=== PATIENT | male | born 1935 ===

== ENCOUNTER 2017-05-03 21:28 | Inpatient (IN) | payer MEDICARE, OTHER ==
[2017-05-03 21:28] VITALS: BMI 31.2
[2017-05-03] MEDS ORDERED: Iohexol 240 (50 ml) PO ONE (21:39)
[2017-05-03] MEDS ORDERED: Sodium Chloride 0.9% 1,000 ML IV STA (21:47)
[2017-05-03] MEDS ORDERED: Morphine 4 MG/ML VIAL ONE (21:48)
[2017-05-03] MEDS ORDERED: Iohexol 240 (50 ml) ONE (21:48)
[2017-05-03 22:13] LABS: VENOUS BLOOD GAS PCO2 44 mmHg (40-60); VENOUS BLOOD GAS PO2 24 mm/Hg (30-55); VENOUS BLOOD PH 7.44 (7.32-7.43)
--- NOTE | 2017-05-03 22:13 | ED PDOC ---
HPI: Abdomen Time Seen by Provider: 05/03/17 21:34 Chief Complaint (Nursing): Abdominal Pain Chief Complaint (Provider): Abdominal Pain History Per: Patient History/Exam Limitations: no limitations Onset/Duration Of Symptoms: Hrs (x2) Current Symptoms Are (Timing): Still Present Additional Complaint(s): Wellington Bain is a 81 year old male with previous medical history of small bowel movements, diverticular disease, and gastritis, who presents to the emergency department with a complaint of acute onset of sharp, constant epigastric pain ongoing for 2 hours. Denied any fever, chills, nausea, vomiting , or diarrhea. Patient stated he had similar episodes in the past. PMD: Bi Faustin MD Past Medical History Reviewed: Historical Data, Nursing Documentation, Vital Signs Vital Signs: Last Vital Signs Temp 98.7 F 05/03/17 21:29 Pulse 84 05/03/17 21:29 Resp 20 05/03/17 21:29 BP 138/79 05/03/17 21:29 Pulse Ox 97 05/04/17 03:57 - Medical History PMH: Arthritis, Gastritis, Hypercholesterolemia Denies: Chronic Kidney Disease - Surgical History Surgical History: Endoscopy - Family History Family History: States: No Known Family Hx - Social History Current smoker - smoking cessation education provided: No Alcohol: None Drugs: Denies - Home Medications Home Medications: Ambulatory Orders Medication Instructions Recorded Glimepiride 4 mg PO DAILY 11/14/14 Metformin Hydrochloride [Metformin] 750 mg PO DAILY 11/14/14 Sitagliptin Phosphate [Januvia] 100 mg PO DAILY 11/14/14 Tamsulosin [Flomax] 0.4 mg PO DAILY 11/14/14 Lactulose 10 gm NA DAILY 4 Days 10/04/15 - Allergies Allergies/Adverse Reactions: Allergies Allergy/AdvReac Type Severity Reaction Status Date / Time No Known Allergies Allergy Verified 10/04/15 11:24 Review of Systems ROS Statement: Except As Marked, All Systems Reviewed And Found Negative Constitutional: Negative for: Fever, Chills Gastrointestinal: Positive for: Abdominal Pain (sharp and constant epigastric). Negative for: Nausea, Vomiting, Diarrhea Physical Exam - Reviewed Nursing Documentation Reviewed: Yes Vital Signs Reviewed: Yes - Physical Exam Appears: Positive for: Non-toxic, Uncomfortable, In Acute Distress (mild) Head Exam: Positive for: ATRAUMATIC, NORMAL INSPECTION, NORMOCEPHALIC Skin: Positive for: Normal Color Cardiovascular/Chest: Positive for: Regular Rate, Rhythm Respiratory: Positive for: CNT, Normal Breath Sounds Gastrointestinal/Abdominal: Positive for: Tenderness (epigastric) Extremity: Positive for: Normal ROM Neurologic/Psych: Positive for: Alert, microfilmer II-XII, Oriented - Laboratory Results Result Diagrams: 05/03/17 22:37 05/03/17 22:37 - ECG O2 Sat by Pulse Oximetry: 97 (RA) Pulse Ox Interpretation: Normal Medical Decision Making Medical Decision Making: Initial Impression: Acute abdominal pain Initial Plan: * VBG shock panel * CT ABD pelvis PO & IV contrast * EKG * Lipase * Troponin I * PTT * PT * Labs * CXR * Pepcid 40mg IV * Omnipaque 50ml PO * Morphine 4mg * NS 1,000ml IV per 125 mls/hr * Zofran 4mg IV * Blood culture * Accucheck * Re-evaluation Scribe Attestation: Documented by Sarika Malik, acting as a scribe for Maxi Rao MD. Provider Scribe Attestation: All medical record entries made by the Scribe were at my direction and personally dictated by me. I have reviewed the chart and agree that the record accurately reflects my personal performance of the history, physical exam, medical decision making, and the department. Time: 0045 Re-Evaluation: EXAM: CT Abdomen and Pelvis With Intravenous Contrast CLINICAL HISTORY: 81 years old, male; Pain; Abdominal pain; Epigastric; Prior surgery; Surgery date: 6+ months; Surgery type: Gall bladder removed; Additional info: Abd pain TECHNIQUE: Axial computed tomography images of the abdomen and pelvis with intravenous contrast. This CT exam was performed using one or more of the following dose reduction techniques : automated exposure control, adjustment of the mA and/or kV according to patient size, and/ or use of iterative reconstruction technique. Coronal and sagittal reformatted images were created and reviewed. CONTRAST: 90 mL of [id number] administered intravenously. COMPARISON: CT - ABD PELVIS PO IV CONTRAST 10/04/2015 3:15:04 PM FINDINGS: Lower thorax: Right basilar atelectasis. ABDOMEN: Liver: No acute findings. Gallbladder and bile ducts: The gallbladder is surgically absent. No significant intra- or extrahepatic biliary ductal dilation. Pancreas: Enhances homogeneously. No ductal dilation. No discrete mass. Spleen: No acute findings. Adrenals: No acute findings. Kidneys and ureters: No acute findings. No hydronephrosis or renal calculi. No discrete solid mass. PELVIS: Bladder: No acute findings. Reproductive: No acute findings. Appendix: The air filled appendix is of normal caliber (series 3, image 107; series 601, image 62) . ABDOMEN and PELVIS: Stomach and bowel: Moderate bowel distention is identified within the mid to distal small bowel with adjacent free fluid. Hyperemia is also detected within these loops of bowel. Distal decompression is identified. Colonic diverticulosis is identified, without inflammation. Peritoneum: As above. Lymph nodes: No pathologically enlarged lymph nodes. Vasculature: Calcified atherosclerotic disease. Bones: No acute fracture. IMPRESSION: Findings within the mid to distal small bowel for which a high-grade small bowel obstruction is suspected, possibly a closed loop - for which clinical correlation and surgical consultation is suggested Consultations: --Case discussed with Dr. Lei MD. the rn surgical homemaking rehabilitation consultant who will evaluate the patient in the ED. --Case discussed with the hospitalist Dr. Longo who will be the admitting physician. --Case discussed with Dr. Jurado the general surgeon homemaking rehabilitation consultant as well. Scribe Attestation: Documented by Cherry Bojorquez, acting as a scribe for Maxi Rao MD. Scribe Attestation: All medical record entries made by the Scribe were at my direction and personally dictated by me. I have reviewed the chart and agree that the record accurately reflects my personal performance of the history, physical exam, medical decision making, and the department course for this patient. I have also personally directed, reviewed, and agree with the discharge instructions and disposition. Disposition - Clinical Impression Clinical Impression: Small bowel obstruction - Patient ED Disposition Is Patient to be Admitted: Yes Discussed With Dr.: Florentin Longo (Dr Jurado/) Counseled Patient/Family Regarding: Studies Performed, Diagnosis - Disposition Disposition Time: 00:40 Condition: FAIR - Pt Status Changed To: Hospital Disposition Of: Inpatient - Admit Certification Admit to Inpatient:: After my assessment, the patient will require hospitalization for at least two midnights. This is because of the severity of symptoms shown, intensity of services needed, and/or the medical risk in this patient being treated as an outpatient.
[2017-05-03 22:44] LABS: BASO % 0.6 % (0.0-2.0); EOS # 0.2 K/uL (0.0-0.7); EOS % 2.9 % (0.0-4.0); HEMOGLOBIN 13.4 g/dL (12.0-18.0); LYMPH # 1.5 K/uL (1.0-4.3); LYMPH % 27.3 % (20.0-40.0); MEAN CELL VOLUME 88.8 fl (80.0-94.0); MEAN CORPUSCULAR HEMOGLOBIN 30.4 pg (27.0-31.0); MEAN CORPUSCULAR HGB CONC 34.2 g/dL (33.0-37.0); MONO # 0.5 K/uL (0.0-0.8); NEUT # 3.2 K/uL (1.8-7.0); NEUT % 59.2 % (50.0-75.0); RBC 4.41 Mil/uL (4.40-5.90); RED CELL DISTRIBUTION WIDTH 14.5 % (11.5-14.5); WHITE BLOOD COUNT 5.4 K/uL (4.8-10.8)
[2017-05-03] MEDS ORDERED: Morphine 4 MG/ML VIAL IVP ONE (22:45)
[2017-05-03 23:04] LABS: ALB/GLOB RATIO 1.6 (1.0-2.1); ALBUMIN 4.5 g/dL (3.5-5.0); ALT/SGPT 41 U/L (21-72); AST/SGOT 30 U/L (17-59); BLOOD UREA NITROGEN 13 mg/dl (9-20); GFR AFRICAN-AMERICAN > 60; GFR NON-AFRICAN AMERICAN > 60; LIPASE 51 U/L (23-300)
[2017-05-03 23:11] LABS: INR 1.1 (0.9-1.2); PARTIAL THROMBOPLASTIN TIME 33.6 Seconds (25.6-37.1); PROTHROMBIN TIME 11.5 Seconds (9.8-13.1)
[2017-05-03] MEDS ORDERED: Sodium Chloride 0.9% 50 ML IV ONE (23:11)
[2017-05-03] MEDS ORDERED: Iohexol 300 100 ML IJ ONE (23:11)
--- NOTE | 2017-05-04 00:23 | CT ---
EXAM: CT Abdomen and Pelvis With Intravenous Contrast CLINICAL HISTORY: 81 years old, male; Pain; Abdominal pain; Epigastric; Prior surgery; Surgery date: 6+ months; Surgery type: Gall bladder removed; Additional info: Abd pain TECHNIQUE: Axial computed tomography images of the abdomen and pelvis with intravenous contrast. This CT exam was performed using one or more of the following dose reduction techniques: automated exposure control, adjustment of the mA and/or kV according to patient size, and/or use of iterative reconstruction technique. Coronal and sagittal reformatted images were created and reviewed. CONTRAST: 90 mL of [id number] administered intravenously. COMPARISON: CT - ABD PELVIS PO IV CONTRAST 10/04/2015 3:15:04 PM FINDINGS: Lower thorax: Right basilar atelectasis. ABDOMEN: Liver: No acute findings. Gallbladder and bile ducts: The gallbladder is surgically absent. No significant intra- or extrahepatic biliary ductal dilation. Pancreas: Enhances homogeneously. No ductal dilation. No discrete mass. Spleen: No acute findings. Adrenals: No acute findings. Kidneys and ureters: No acute findings. No hydronephrosis or renal calculi. No discrete solid mass. PELVIS: Bladder: No acute findings. Reproductive: No acute findings. Appendix: The air filled appendix is of normal caliber (series 3, image 107; series 601, image 62) . ABDOMEN and PELVIS: Stomach and bowel: Moderate bowel distention is identified within the mid to distal small bowel with adjacent free fluid. Hyperemia is also detected within these loops of bowel. Distal decompression is identified. Colonic diverticulosis is identified, without inflammation. Peritoneum: As above. Lymph nodes: No pathologically enlarged lymph nodes. Vasculature: Calcified atherosclerotic disease. Bones: No acute fracture. IMPRESSION: Findings within the mid to distal small bowel for which a high-grade small bowel obstruction is suspected, possibly a closed loop - for which clinical correlation and surgical consultation is suggested.
[2017-05-04] MEDS ORDERED: Albuterol-Ipratrop 3 mg / 0.5 (3 ml) UD INH STA (01:50)
[2017-05-04] MEDS ORDERED: Albuterol-Ipratrop 3 mg / 0.5 (3 ml) UD ONE (02:54)
[2017-05-04] MEDS ORDERED: HYDROmorphone 0.5 mg/0.5 ml ISec IVP PRN ×2 (03:48→16:44)
[2017-05-04] MEDS ORDERED: Dextrose 50% SYRINGE Inj (50 ml) IV PRN (03:50)
[2017-05-04] MEDS ORDERED: Glucagon Recombinant 1 mg Inj IM PRN (03:50)
[2017-05-04] MEDS ORDERED: Albuterol-Ipratrop 3 mg / 0.5 (3 ml) UD INH PRN (03:54)
--- NOTE | 2017-05-04 04:27 | CP.PCM.CON ---
History of Present Illness - History of Present Illness History of Present Illness: General Surgery Consult Re: SBO HPI: 81M presented to the ER with sharp, constant periumbilical pain x 2hrs. Does not radiate. Has had similar pain before which he says was from gastritis which resolved. Denied F/C, N/V/D/C, chest pain, SOB. Last BM was 2 days ago and normal. No other complaints. Has never had an NGT for this pain before. PMH: DM, HLD, gastritis, Hx pancreatitis, Arthritis, diverticulosis PSH: Cholecystectomy, prostate, pancreas? SH: Denies tobacco, EtOH, and drug use. All: NKDA Meds: See MAR Review of Systems - Review of Systems All systems: reviewed and no additional remarkable complaints except (as per HPI ) Past Patient History - Past Medical History & Family History Past Medical History?: Yes - Past Social History Alcohol: None Drugs: Denies - CARDIAC Hx Hypercholesterolemia: Yes - PULMONARY Hx Respiratory Disorders: No - NEUROLOGICAL Hx Neurological Disorder: No - HEENT Hx HEENT Problems: No - RENAL Hx Chronic Kidney Disease: No - ENDOCRINE/METABOLIC Hx Endocrine Disorders: Yes Hx Diabetes Mellitus Type 2: Yes - HEMATOLOGICAL/ONCOLOGICAL Hx Blood Disorders: No - INTEGUMENTARY Hx Dermatological Problems: No - MUSCULOSKELETAL/RHEUMATOLOGICAL Hx Arthritis: Yes - GASTROINTESTINAL Hx Gastritis: Yes - GENITOURINARY/GYNECOLOGICAL Hx Genitourinary Disorders: No - PSYCHIATRIC Hx Emotional Abuse: No Hx Physical Abuse: No Hx Substance Use: No - SURGICAL HISTORY Hx Surgeries: Yes Other/Comment: PROSTATECTOMY, PANCREAS SX - ANESTHESIA Hx Anesthesia: Yes Hx Anesthesia Reactions: No Hx Malignant Hyperthermia: No Meds Allergies/Adverse Reactions: Allergies Allergy/AdvReac Type Severity Reaction Status Date / Time No Known Allergies Allergy Verified 10/04/15 11:24 - Medications Medications: Current Medications Albuterol/Ipratropium (Duoneb 3 Mg/0.5 Mg (3 Ml) Ud) 3 ml INH RQ6 PRN PRN Reason: Shortness of Breath Dextrose (Dextrose 50% Inj) 0 ml IV STAT PRN; Protocol PRN Reason: Hyglycemia Protocol Dextrose (Glutose 15) 0 gm PO ONCE PRN; Protocol PRN Reason: Hypoglycemia Protocol Famotidine (Pepcid) 20 mg IVP DAILY KRISTY Glucagon (Glucagen Diagnostic Kit) 0 mg IM STAT PRN; Protocol PRN Reason: Hypoglycemia Protocol Hydromorphone HCl (Dilaudid) 0.5 mg IVP RQ4PRN PRN PRN Reason: Pain, severe (8-10) Sodium Chloride (Sodium Chloride 0.9%) 1,000 mls @ 125 mls/hr IV .Q8H STA Stop: 05/04/17 05:46 Last Admin: 05/03/17 22:28 Dose: 125 mls/hr Insulin Human Regular (Humulin R) 0 units SC ACHS KRISTY PRN Reason: Protocol Ondansetron HCl (Zofran Inj) 4 mg IVP Q4 PRN PRN Reason: Nausea/Vomiting Physical Exam - Constitutional Appears: Non-toxic, No Acute Distress - Head Exam Head Exam: ATRAUMATIC, NORMOCEPHALIC - Eye Exam Eye Exam: EOMI. absent: Scleral icterus - ENT Exam ENT Exam: Mucous Membranes Moist Additional comments: trachea midline - Respiratory Exam Respiratory Exam: NORMAL BREATHING PATTERN. absent: Respiratory Distress - Cardiovascular Exam Cardiovascular Exam: RRR, +S1, +S2 - GI/Abdominal Exam GI & Abdominal Exam: Guarding (mild), Soft, Tenderness (over periumbilical area) . absent: Distended, Firm, Rigid Additional comments: old midline scar, well healed - Rectal Exam Rectal Exam: Deferred - Extremities Exam Extremities exam: Negative for: calf tenderness, pedal edema - Back Exam Back exam: absent: CVA tenderness (L), CVA tenderness (R) - Neurological Exam Neurological exam: Alert, Oriented x3 - Psychiatric Exam Psychiatric exam: Normal Affect - Skin Skin Exam: Dry, Warm Results - Vital Signs Recent Vital Signs: Last Vital Signs Temp 98.7 F 05/03/17 21:29 Pulse 84 05/03/17 21:29 Resp 20 05/03/17 21:29 BP 138/79 05/03/17 21:29 Pulse Ox 97 05/04/17 03:57 - Labs Result Diagrams: 05/04/17 04:27 05/04/17 04:27 - Imaging and Cardiology CT scan - abdomen Status: Image reviewed by me, Report reviewed by me Assessment & Plan - Assessment and Plan (Free Text) Assessment: 81M with SBO likely 2/2 adhesions Plan: Serial abd exams NGT if N/V begins Zofran Analgesia Monitor for BMs D/W Dr. Adrien Odom PGY4
[2017-05-04 04:33] LABS: BASO % 0.4 % (0.0-2.0); EOS % 0.4 % (0.0-4.0); HEMOGLOBIN 13.3 g/dL (12.0-18.0); LYMPH # 1.7 K/uL (1.0-4.3); LYMPH % 22.3 % (20.0-40.0); MEAN CELL VOLUME 89.2 fl (80.0-94.0); MEAN CORPUSCULAR HEMOGLOBIN 31.1 pg (27.0-31.0); MEAN CORPUSCULAR HGB CONC 34.8 g/dL (33.0-37.0); MEAN PLATELET VOLUME 8.7 fl (7.2-11.7); MONO # 0.5 K/uL (0.0-0.8); MONO % 6.9 % (0.0-10.0); NEUT # 5.3 K/uL (1.8-7.0); NRBC % 0.1 % (0.0-0.0); RBC 4.3 Mil/uL (4.40-5.90); RED CELL DISTRIBUTION WIDTH 14.6 % (11.5-14.5); WHITE BLOOD COUNT 7.6 K/uL (4.8-10.8)
[2017-05-04 04:39] LABS: BLOOD UREA NITROGEN 12 mg/dl (9-20); CALCIUM 9.1 mg/dL (8.4-10.2); GFR AFRICAN-AMERICAN > 60; GFR NON-AFRICAN AMERICAN > 60; MAGNESIUM 1.9 MG/DL (1.6-2.3)
--- NOTE | 2017-05-04 06:03 | CP.PCM.HP ---
History of Present Illness - History of Present Illness History of Present Illness: Chief Complaint: Abdominal pain HPI: PT is an 81 yo male with past medical hx of DM, BPH, diverticulosis, and gastritis who presents to the emergency department with an acute onset of sharp epigastric pain that he quantifies at 6-7 /10 that was getting progressive in nature ongoing for 2 hours. Pt denies any fever, chills, nausea, vomiting, or diarrhea. Pt was seen by surgery resident who at this time will do conservative management. NGT could not be inserted. PT on ct scan found to have a high grade obstruction. PMD: Bi Faustin MD Last Vital Signs Temp 98.7 F 05/03/17 21:29 Pulse 84 05/03/17 21:29 Resp 20 05/03/17 21:29 BP 138/79 05/03/17 21:29 Pulse Ox 97 05/04/17 03:57 PMH: Arthritis, Gastritis, Hypercholesterolemia Surgical History: Endoscopy Family History: States: No Known Family Hx Social HX: denies any toxic habits Home Medications: Ambulatory Orders Medication Instructions Recorded Glimepiride 4 mg PO DAILY 11/14/14 Metformin Hydrochloride [Metformin] 750 mg PO DAILY 11/14/14 Sitagliptin Phosphate [Januvia] 100 mg PO DAILY 11/14/14 Tamsulosin [Flomax] 0.4 mg PO DAILY 11/14/14 Lactulose 10 gm NA DAILY 4 Days 10/04/15 Allergies Allergy/AdvReac Type Severity Reaction Status Date / Time No Known Allergies Allergy Verified 10/04/15 11:24 - ECG O2 Sat by Pulse Oximetry: 97 (RA) Pulse Ox Interpretation: Normal EXAM: CT Abdomen and Pelvis With Intravenous Contrast CLINICAL HISTORY: 81 years old, male; Pain; Abdominal pain; Epigastric; Prior surgery; Surgery date: 6+ months; Surgery type: Gall bladder removed; Additional info: Abd pain TECHNIQUE: Axial computed tomography images of the abdomen and pelvis with intravenous contrast. This CT exam was performed using one or more of the following dose reduction techniques : automated exposure control, adjustment of the mA and/or kV according to patient size, and/ or use of iterative reconstruction technique. Coronal and sagittal reformatted images were created and reviewed. CONTRAST: 90 mL of [id number] administered intravenously. COMPARISON: CT - ABD PELVIS PO IV CONTRAST 10/04/2015 3:15:04 PM FINDINGS: Lower thorax: Right basilar atelectasis. ABDOMEN: Liver: No acute findings. Gallbladder and bile ducts: The gallbladder is surgically absent. No significant intra- or extrahepatic biliary ductal dilation. Pancreas: Enhances homogeneously. No ductal dilation. No discrete mass. Spleen: No acute findings. Adrenals: No acute findings. Kidneys and ureters: No acute findings. No hydronephrosis or renal calculi. No discrete solid mass. PELVIS: Bladder: No acute findings. Reproductive: No acute findings. Appendix: The air filled appendix is of normal caliber (series 3, image 107; series 601, image 62) . ABDOMEN and PELVIS: Stomach and bowel: Moderate bowel distention is identified within the mid to distal small bowel with adjacent free fluid. Hyperemia is also detected within these loops of bowel. Distal decompression is identified. Colonic diverticulosis is identified, without inflammation. Peritoneum: As above. Lymph nodes: No pathologically enlarged lymph nodes. Vasculature: Calcified atherosclerotic disease. Bones: No acute fracture. IMPRESSION: Findings within the mid to distal small bowel for which a high-grade small bowel obstruction is suspected, possibly a closed loop - for which clinical correlation and surgical consultation is suggested Present on Admission - Present on Admission Any Indicators Present on Admission: No History of DVT/PE: No History of Uncontrolled Diabetes: No Urinary Catheter: No Decubitus Ulcer Present: No Review of Systems - Constitutional Constitutional: absent: As Per HPI, Anorexia, Chills, Daytime Sleepiness, Excessive Sweating, Fatigue, Fever, Frequent Falls, Headache, Increased Appetite , Lethargy, Malaise, Night Sweats, Snoring, Sleep Apnea, Weight Gain, Weight Loss, Weakness, Other - EENT Eyes: absent: As Per HPI, Blind Spots, Blurred Vision, Change in Vision, Decreased Night Vision, Diplopia, Discharge, Dry Eye, Exophthalmos, Floaters, Irritation, Itchy Eyes, Loss of Peripheral Vision, Pain, Photophobia, Requires Corrective Lenses, Sees Flashes, Spots in Vision, Tunnel Vision, Other Visual Disturbances, Loss of Vision, Other Ears: absent: As Per HPI, Decreased Hearing, Ear Discharge, Ear Pain, Tinnitus, Abnormal Hearing, Disequilibrium, Dizziness, Other Nose/Mouth/Throat: absent: As Per HPI, Epistaxis, Nasal Congestion, Nasal Discharge, Nasal Obstruction, Nasal Trauma, Nose Pain, Post Nasal Drip, Sinus Pain, Sinus Pressure, Bleeding Gums, Change in Voice, Dental Pain, Dry Mouth, Dysphagia, Halitosis, Hoarsness, Lip Swelling, Mouth Lesions, Mouth Pain, Odynophagia, Sore Throat, Throat Swelling, Tongue Swelling, Facial Pain, Neck Pain, Neck Mass, Other - Cardiovascular Cardiovascular: absent: As Per HPI, Acrocyanosis, Chest Pain, Chest Pain at Rest , Chest Pain with Activity, Claudication, Diaphoresis, Dyspnea, Dyspnea on Exertion, Edema, Irregular Heart Rhythm, Pain Radiating to Arm/Neck/Jaw, Leg Edema, Leg Ulcers, Lightheadedness, Orthopnea, Palpitations, Paroxysmal Nocturnal Dyspnea, Pedal Edema, Radiating Pain, Rapid Heart Rate, Slow Heart Rate, Syncope, Other - Respiratory Respiratory: absent: As Per HPI, Cough, Dyspnea, Hemoptysis, Dyspnea on Exertion , Wheezing, Snoring, Stridor, Pain on Inspiration, Chest Congestion, Excessive Mucous Production, Change in Mucous Color, Pain with Coughing, Other - Gastrointestinal Gastrointestinal: Abdominal Pain - Genitourinary Genitourinary: absent: As Per HPI, Change in Urinary Stream, Difficulty Urinating, Dysuria, Flank Pain, Hematuria, Pyuria, Nocturia, Urinary Incontinence, Urinary Frequency, Urinary Hesitance, Urinary Urgency, Voiding Freq/Small Amts, Freq UTI, Hx Renal/Bladder Calculi, Hx /Renal Surgery, Bladder Distension, Other - Musculoskeletal Musculoskeletal: absent: As Per HPI, Abnormal Gait, Arthralgias, Atrophy, Back Pain, Deformity, Joint Swelling, Limited Range of Motion, Loss of Height, Muscle Cramps, Muscle Weakness, Myalgias, Neck Pain, Numbness, Radiating Pain into Limb, Stiffness, Tingling, Other - Integumentary Integumentary: absent: As Per HPI, Acne, Alopecia, Bleeding Lesions, Change in Hair, Change in Nails, Change in Pigmentation, Changing Lesions, Dry Skin, Erythema, Furuncle, Hirsutism, Lesions, New Lesions, Non-Healing Lesions, Photosensitivity, Pruritus, Rash, Skin Pain, Skin Ulcer, Sores, Striae, Swelling , Unusual Bruising, Wounds, Jaundice, Other - Neurological Neurological: absent: As Per HPI, Abnormal Gait, Abnormal Hearing, Abnormal Movements, Abnormal Speech, Behavioral Changes, Burning Sensations, Confusion, Convulsions, Disequilibrium, Dizziness, Numbness, Focal Weakness, Frequent Falls , Headaches, Lack of Coordination, Loss of Vision, Memory Loss, Paresthesias, Radicular Pain, Restless Legs, Sensory Deficit, Syncope, Tingling, Tremor, Vertigo, Weakness, Other Visual Disturbances, Other - Psychiatric Psychiatric: absent: As Per HPI, Abnormal Sleep Pattern, Anhedonia, Anxiety, Auditory Hallucinations, Behavioral Changes, Change in Appetite, Change in Libido, Confusion, Depression, Difficulty Concentrating, Hallucinations, Homicidal Ideation, Hopelessness, Irritability, Memory Loss, Mood Swings, Panic Attacks, Paranoia, Suicidal Ideation, Visual Hallucinations, Tactile Hallucinations, Other - Endocrine Endocrine: absent: As Per HPI, Change in Body Appearance, Change in Libido, Cold Intolorance, Deepening of Voice, Excessive Sweating, Fatigue, Flushing, Heat Intolorance, Increase in Ring/Shoe/Hat Size, Palpitations, Polydipsia, Polyphagia, Polyuria, Other Past Patient History - Past Medical History & Family History Past Medical History?: Yes - Past Social History Chewing Tobacco Use: No Cigar Use: No Alcohol: None Drugs: Denies - CARDIAC Hx Hypercholesterolemia: Yes - PULMONARY Hx Respiratory Disorders: No - NEUROLOGICAL Hx Neurological Disorder: No - HEENT Hx HEENT Problems: No - RENAL Hx Chronic Kidney Disease: No - ENDOCRINE/METABOLIC Hx Endocrine Disorders: Yes Hx Diabetes Mellitus Type 2: Yes - HEMATOLOGICAL/ONCOLOGICAL Hx Blood Disorders: No - INTEGUMENTARY Hx Dermatological Problems: No - MUSCULOSKELETAL/RHEUMATOLOGICAL Hx Arthritis: Yes - GASTROINTESTINAL Hx Gastritis: Yes - GENITOURINARY/GYNECOLOGICAL Hx Genitourinary Disorders: No - PSYCHIATRIC Hx Emotional Abuse: No Hx Physical Abuse: No Hx Substance Use: No - SURGICAL HISTORY Hx Surgeries: Yes Other/Comment: PROSTATECTOMY, PANCREAS SX - ANESTHESIA Hx Anesthesia: Yes Hx Anesthesia Reactions: No Hx Malignant Hyperthermia: No Meds Allergies/Adverse Reactions: Allergies Allergy/AdvReac Type Severity Reaction Status Date / Time No Known Allergies Allergy Verified 10/04/15 11:24 Physical Exam - Constitutional Appears: Non-toxic - Head Exam Head Exam: ATRAUMATIC, NORMAL INSPECTION, NORMOCEPHALIC - Eye Exam Eye Exam: EOMI, Normal appearance, PERRL Pupil Exam: NORMAL ACCOMODATION - ENT Exam ENT Exam: Mucous Membranes Dry - Neck Exam Neck exam: Positive for: Normal Inspection - Respiratory Exam Respiratory Exam: Clear to Auscultation Bilateral, NORMAL BREATHING PATTERN - Cardiovascular Exam Cardiovascular Exam: REGULAR RHYTHM - GI/Abdominal Exam GI & Abdominal Exam: Diminished Bowel Sounds, Distended - Extremities Exam Extremities exam: Positive for: normal inspection - Back Exam Back exam: NORMAL INSPECTION - Neurological Exam Neurological exam: Alert, CN II-XII Intact, Normal Gait, Oriented x3, Reflexes Normal - Skin Skin Exam: Normal Color Results - Vital Signs Recent Vital Signs: Last Vital Signs Temp 97.6 F 05/04/17 04:30 Pulse 77 05/04/17 04:30 Resp 18 05/04/17 04:30 BP 143/67 05/04/17 04:30 Pulse Ox 96 05/04/17 04:30 - Labs Result Diagrams: 05/04/17 04:27 05/04/17 04:27 Labs: Laboratory Results - last 24 hr 05/04/17 05/04/17 04:27 04:27 WBC 7.6 RBC 4.30 L Hgb 13.3 Hct 38.3 MCV 89.2 MCH 31.1 H MCHC 34.8 RDW 14.6 H Plt Count 139 MPV 8.7 Neut % (Auto) 70.0 Lymph % (Auto) 22.3 Fountain % (Auto) 6.9 Eos % (Auto) 0.4 Baso % (Auto) 0.4 Neut # 5.3 Lymph # 1.7 Fountain # 0.5 Eos # 0.0 Baso # 0.0 Sodium 138 Potassium 3.9 Chloride 102 Carbon Dioxide 25 Anion Gap 15 BUN 12 Creatinine 0.7 L Est GFR ( Amer) > 60 Est GFR (Non-Af Amer) > 60 Random Glucose 174 H Calcium 9.1 Phosphorus 3.0 Magnesium 1.9 TSH 3rd Generation 4.08 Assessment & Plan - Assessment and Plan (Free Text) Assessment: PT comes in with high grade SBO. PT to be seen by surgery, for now conservative management. Plan: admit to medsurg 1) SBO- - iv fluid hydration - pain management with dilaudid - surgery to follow up with pt - electrolyte repletion PRN - NGT not necessary at this time 2) DM- - Pt is npo - insulin and sliding scale - HGA1c 3) gastritis- pepcid 4) dvt prophylaxis with [facility] - Date & Time Date: 05/04/17 Time: 06:18
[2017-05-04] MEDS: Insulin Regular 100 units/ml SC SCH ×2 (06:51→11:43)
--- NOTE | 2017-05-04 07:48 | CARD ---
APPROVED REPORT EKG Measurement Heart [id number] <Conclusion> Normal sinus rhythm Normal ECG
[2017-05-04] MEDS: Sodium Chloride 0.9% 1,000 ML IV SCH ×2 (08:00→16:29)
[2017-05-04] MEDS ORDERED: Pneumococcal 23-Valent Vaccine IM ONE (09:00)
--- NOTE | 2017-05-04 10:52 | CP.PCM.CON ---
History of Present Illness - History of Present Illness History of Present Illness: 81 yo male with past medical hx of DM, BPH, diverticulosis, and gastritis who presents to the emergency department with an acute onset of sharp epigastric pain that he quantifies at 6-7 /10 that was getting progressive in nature ongoing for 2 hours. Pt denies any fever, chills, nausea, vomiting, or diarrhea. Pt was seen by surgery NGT could not be inserted. PT on ct scan found to have a high grade obstruction. Surgery is planned for this afternoon Cardiology consult is called for Pre - Op clearance EKG: normal Echo: good LV function PMH: NIDDM Arthritis BPH Review of Systems - Constitutional Constitutional: As Per HPI - Gastrointestinal Gastrointestinal: Abdominal Pain, Change in Bowel Habits, Constipation Past Patient History - Past Medical History & Family History Past Medical History?: Yes - Past Social History Chewing Tobacco Use: No Cigar Use: No Alcohol: None Drugs: Denies - CARDIAC Hx Cardiac Disorders: No Hx Hypercholesterolemia: Yes - NEUROLOGICAL Hx Neurological Disorder: No - HEENT Hx HEENT Problems: No - RENAL Hx Chronic Kidney Disease: No - ENDOCRINE/METABOLIC Hx Endocrine Disorders: Yes Hx Diabetes Mellitus Type 2: Yes - HEMATOLOGICAL/ONCOLOGICAL Hx Blood Disorders: No - INTEGUMENTARY Hx Dermatological Problems: No - MUSCULOSKELETAL/RHEUMATOLOGICAL Hx Arthritis: Yes - GASTROINTESTINAL Hx Gastritis: Yes - GENITOURINARY/GYNECOLOGICAL Hx Genitourinary Disorders: No - PSYCHIATRIC Hx Emotional Abuse: No Hx Physical Abuse: No Hx Substance Use: No - SURGICAL HISTORY Hx Surgeries: Yes Other/Comment: PROSTATECTOMY, PANCREAS SX - ANESTHESIA Hx Anesthesia: Yes Hx Anesthesia Reactions: No Hx Malignant Hyperthermia: No Meds Allergies/Adverse Reactions: Allergies Allergy/AdvReac Type Severity Reaction Status Date / Time No Known Allergies Allergy Verified 10/04/15 11:24 - Medications Medications: Current Medications Albuterol/Ipratropium (Duoneb 3 Mg/0.5 Mg (3 Ml) Ud) 3 ml INH RQ6 PRN PRN Reason: Shortness of Breath Dextrose (Dextrose 50% Inj) 0 ml IV STAT PRN; Protocol PRN Reason: Hyglycemia Protocol Dextrose (Glutose 15) 0 gm PO ONCE PRN; Protocol PRN Reason: Hypoglycemia Protocol Famotidine (Pepcid) 20 mg IVP DAILY KRISTY Last Admin: 05/04/17 09:24 Dose: 20 mg Glucagon (Glucagen Diagnostic Kit) 0 mg IM STAT PRN; Protocol PRN Reason: Hypoglycemia Protocol Hydromorphone HCl (Dilaudid) 0.5 mg IVP RQ4PRN PRN PRN Reason: Pain, severe (8-10) Sodium Chloride (Sodium Chloride 0.9%) 1,000 mls @ 125 mls/hr IV .Q8H [facility] Stop: 05/05/17 07:19 Last Admin: 05/04/17 08:00 Dose: 125 mls/hr Insulin Human Regular (Humulin R) 0 units SC ACHS KRISTY PRN Reason: Protocol Last Admin: 05/04/17 06:51 Dose: Not Given Ondansetron HCl (Zofran Inj) 4 mg IVP Q4 PRN PRN Reason: Nausea/Vomiting Last Admin: 05/04/17 09:20 Dose: 4 mg Physical Exam - Head Exam Head Exam: NORMAL INSPECTION - Eye Exam Eye Exam: Normal appearance Pupil Exam: NORMAL ACCOMODATION - ENT Exam ENT Exam: Normal Exam - Neck Exam Neck exam: Positive for: Normal Inspection - Respiratory Exam Respiratory Exam: NORMAL BREATHING PATTERN - Cardiovascular Exam Cardiovascular Exam: REGULAR RHYTHM - GI/Abdominal Exam GI & Abdominal Exam: Diminished Bowel Sounds, Distended Results - Vital Signs Recent Vital Signs: Last Vital Signs Temp 97.6 F 05/04/17 08:47 Pulse 78 05/04/17 08:47 Resp 18 05/04/17 08:47 BP 132/67 05/04/17 08:47 Pulse Ox 97 05/04/17 08:47 - Labs Result Diagrams: 05/04/17 04:27 05/04/17 04:27 Labs: Laboratory Results - last 24 hr 05/04/17 05/04/17 05/04/17 04:27 04:27 05:43 WBC 7.6 RBC 4.30 L Hgb 13.3 Hct 38.3 MCV 89.2 MCH 31.1 H MCHC 34.8 RDW 14.6 H Plt Count 139 MPV 8.7 Neut % (Auto) 70.0 Lymph % (Auto) 22.3 [place]imble % (Auto) 6.9 Eos % (Auto) 0.4 Baso % (Auto) 0.4 Neut # 5.3 Lymph # 1.7 Trimble # 0.5 Eos # 0.0 Baso # 0.0 Sodium 138 Potassium 3.9 Chloride 102 Carbon Dioxide 25 Anion Gap 15 BUN 12 Creatinine 0.7 L Est GFR ( Amer) > 60 Est GFR (Non-Af Amer) > 60 POC Glucose (mg/dL) 211 H Random Glucose 174 H Calcium 9.1 Phosphorus 3.0 Magnesium 1.9 TSH 3rd Generation 4.08 BBK History Checked 05/04/17 09:53 WBC RBC Hgb Hct MCV MCH MCHC RDW Plt Count MPV Neut % (Auto) Lymph % (Auto) Trimble % (Auto) Eos % (Auto) Baso % (Auto) Neut # Lymph # Trimble # Eos # Baso # Sodium Potassium Chloride Carbon Dioxide Anion Gap BUN Creatinine Est GFR ( Amer) Est GFR (Non-Af Amer) POC Glucose (mg/dL) Random Glucose Calcium Phosphorus Magnesium TSH 3rd Generation BBK History Checked No verified bt Assessment & Plan (1) Small bowel obstruction Assessment and Plan: The pt is scheduled for surgery today Cardiac schuster he is cleared Status: Acute (2) Diabetes mellitus Status: Acute
--- NOTE | 2017-05-04 11:17 | RAD ---
HISTORY: Abdominal pain. COMPARISON: 12/18/2014 FINDINGS: LUNGS: Atelectasis/infiltrate left lower lobe subsegmental. PLEURA: No significant pleural effusion identified, no pneumothorax apparent. CARDIOVASCULAR: No radiographic findings to suggest acute or significant cardiovascular disease. OSSEOUS STRUCTURES: No significant abnormalities. VISUALIZED UPPER ABDOMEN: Normal. OTHER FINDINGS: None. IMPRESSION: Left lower lobe infiltrate/atelectasis.
--- NOTE | 2017-05-04 11:26 | CARD ---
APPROVED REPORT EXAM: Two-dimensional and M-mode echocardiogram with Doppler and color Doppler. Other Information Quality : GoodRhythm : NSR INDICATION Pre-Op 2D DIMENSIONS IVSd1.14 (0.7-1.1cm)LVDd4.37 (3.9-5.9cm) LVOT Diameter1.99 (1.8-2.4cm)PWd0.91 (0.7-1.1cm) IVSs1.02 (0.8-1.2cm)LVDs3.55 (2.5-4.0cm) FS (%) 18.7 %PWs0.98 (0.8-1.2cm) M-Mode DIMENSIONS Left Atrium (MM)3.94 (2.5-4.0cm)IVSd0.85 (0.7-1.1cm) Aortic Root3.29 (2.2-3.7cm)LVDd5.74 (4.0-5.6cm) Aortic Cusp Exc.1.85 (1.5-2.0cm)PWd0.85 (0.7-1.1cm) IVSs0.94 cmFS (%) 30 % LVDs4.00 (2.0-3.8cm)PWs1.65 cm Aortic Valve AoV Peak Ugoxjejm879.1cm/sAoV VTI30.3cmAO Peak GR.9mmHg LVOT Peak Ioepqzqd62.9cm/sLVOT VTI19.04cmAO Mean GR.4mmHg NEDRA (VMAX)0.76ms3YEJ (VTI)1.13cm2 Mitral Valve MV E Sfmfknbv48.9cm/sMV DECEL [id number] A Rqpvufku044.2cm/s MV NXU43blN/A ratio0.5MVA (PHT)2.82cm2 TDI Lateral E' Peak V6.76cm/sMedial E' Peak V6.76cm/sE/Lateral E'9.0 E/Medial E'9.0 Pulmonary Valve PV Peak Jctvllfs50.1cm/s Tricuspid Valve TR Peak Pceehciu316mg/sRAP HNOMNVIT91vfNeQQ Peak Gr.26mmHg [id number] LEFT VENTRICLE The left ventricle is normal size. There is normal left ventricular wall thickness. Left ventricle systolic function is normal. The Ejection Fraction is 65-70%. There is normal LV segmental wall motion. Transmitral Doppler flow pattern is Grade I-abnormal relaxation pattern. RIGHT VENTRICLE The right ventricle is normal size. There is normal right ventricular wall thickness. The right ventricular systolic function is normal. ATRIA The left atrium size is normal. The right atrium size is normal. AORTIC VALVE The aortic valve is mildly sclerotic. No aortic regurgitation is present. There is no aortic valvular stenosis. MITRAL VALVE The mitral valve is normal in structure and function. There is no evidence of mitral valve prolapse. There is no mitral valve stenosis. There is no mitral valve regurgitation noted. TRICUSPID VALVE The tricuspid valve is normal in structure. There is mild tricuspid regurgitation. Right ventricular systolic pressure is estimated at 44 mmHg. There is moderate pulmonary hypertension. PULMONIC VALVE The pulmonary valve is normal in structure and function. There is trace pulmonic valvular regurgitation. GREAT VESSELS The aortic root is normal in size. Due to poor image quality, the IVC could not be assessed. PERICARDIAL EFFUSION The pericardium appears normal. <Conclusion> The left ventricle is normal size. There is normal left ventricular wall thickness. There is normal LV segmental wall motion. Left ventricle systolic function is normal. The Ejection Fraction is 65-70%. Transmitral Doppler flow pattern is Grade I-abnormal relaxation pattern. There is mild tricuspid regurgitation. There is moderate pulmonary hypertension. Due to poor image quality, the IVC could not be assessed.
[2017-05-04] MEDS ORDERED: metroNIDAZOLE 500mg/100ml NS 0 ML IVPB ONE (13:58)
[2017-05-04] MEDS ORDERED: Succinylcholine 200 mg/10 ml Inj IV ONE (14:25)
[2017-05-04] MEDS ORDERED: Etomidate 20 mg/10ml Inj IV ONE (14:25)
[2017-05-04] MEDS ORDERED: Ropivacaine 0.5% 30ML IV ONE (14:27)
[2017-05-04] MEDS ORDERED: Vasopressin 20 Units/ml Inj ONE (14:27)
[2017-05-04] MEDS ORDERED: Lidocaine 4% (Laryng-O-Jet) Kit MM ONE (14:36)
[2017-05-04] MEDS ORDERED: Lactated Ringer's 500 ML IV ONE (14:45)
[2017-05-04] MEDS ORDERED: Lactated Ringer's 1,000 ML IV ONE ×3 (14:45→18:00)
[2017-05-04] MEDS ORDERED: Sodium Chloride 0.9% 500 ML IV ONE (14:45)
[2017-05-04] MEDS ORDERED: Rocuronium 10 mg/ml (5 ml) ONE (15:09)
[2017-05-04] MEDS ORDERED: Dexamethasone 4 mg/1 ml ONE (15:29)
[2017-05-04] MEDS ORDERED: ePHEDrine 50 mg/ml Inj ONE (16:11)
[2017-05-04] MEDS ORDERED: Neostigmine Methylsulfate 3mg/3ml Syringe IV ONE (16:19)
[2017-05-04] MEDS ORDERED: Propofol 10 mg/ml Inj (20 ML) ONE (16:40)
--- NOTE | 2017-05-04 16:46 | PCM.SURG1 ---
Surgeon's Initial Post Op Note - Surgeon's Notes Surgeon: Dr. Jurado Candy Vendor: Jackelin PGY3, Eliezer PGY3, Luanne Anthony PGY2 Type of Anesthesia: General Endo Pre-Operative Diagnosis: Small bowel obstruction Operative Findings: extensive adhesions, internal hernia Post-Operative Diagnosis: Internal hernia with extensive adhesions Operation Performed: Exploratory laparotomy, lysis of adhesion, internal hernia reduction Specimen/Specimens Removed: old sutures Estimated Blood Loss: EBL {In ML}: 50 Blood Products Given: N/A Drains Used: No Drains Post-Op Condition: Fair Date of Surgery/Procedure: 05/04/17 Time of Surgery/Procedure: 16:47
[2017-05-04] MEDS ORDERED: Metoprolol 1 mg/ml Inj IVP ONE (16:59)
[2017-05-04] MEDS: HYDROmorphone 0.5 mg/0.5 ml ISec IVP PRN ×2 (17:15→19:11)
[2017-05-04] MEDS ORDERED: Sodium Chloride 0.9% 1,000 ML IV SCH (17:46)
--- NOTE | 2017-05-04 18:35 | PCM.ANESB5 ---
Transverse Abdominis Block - Transverse Abdominis Plane Date of Procedure: 05/04/17 Anesthesiologist: Angelica Pre-Procedure Diagnosis: SBO Post-Procedure Diagnosis: SBO Procedure Performed: Transverse Abdominis Plane Nerve Block Left, Transverse Abdominis Plane Nerve Block Right - Procedure Transverse Abdominis Plane Nerve Block: The procedure was explained to the patient that it is for post-operative pain management and would be performed after surgery. Consent was obtained prior to surgery after a thorough discussion with the patient regarding the benefits and possible complications of transverse abdominis plane block. After the surgery had concluded and before the patient emerged from general anesthesia, time-out was held with the circulating nurse to re-confirm the appropriate block. With the patient in supine position, the ultrasound probe was placed transverse to the abdominal wall at the mid-axillary line above the iliac crest of the appropriate side. The skin, subcutaneous tissue, fat, external oblique muscle, internal oblique muscle, and the transverse abdominis muscle were identified. The general area of the block site was then prepped with Betadine three times. At this point, a # 21-gauge Stimuplex 4-inch needle was inserted posterior to and in plane with the ultrasound probe and directed anteriorly. Needle was advanced under direct ultrasound visualization until it reached the plane between the internal oblique and transverse abdominis muscles. After appropriate placement, 2mL of local anesthetic solution was injected. When the transverse abdominis plane was observed expanding in an ellipsoid way, the rest of the solution was slowly injected. A total of ___25__ mL of __0.25___ % ropivicaine was used for this block. The needle was then removed and sterile dressing was applied. Similarly, the same procedure was performed on the other side using the same medications. The patient had stable vital signs throughout and had no untoward complications after emergence from general anesthesia in the recovery room.
[2017-05-05] MEDS: Lactated Ringer's 1,000 ML IV SCH ×3 (00:11→13:07)
[2017-05-05] MEDS: Insulin Regular 100 units/ml SC SCH ×5 (00:12→21:43)
--- NOTE | 2017-05-05 02:41 | OP ---
PROCEDURE DATE: 05/04/2017 PREOPERATIVE DIAGNOSIS: Small bowel obstruction, possible closed loop obstruction. POSTOPERATIVE DIAGNOSIS: Closed loop small bowel obstruction with internal hernia. PROCEDURES: Lysis of adhesions and reduction of internal hernia. SURGEON: Dr. Jurado. ASSISTANTS: Dr. Garg, Dr. Martins, and Dr. Anthony. TYPE OF ANESTHESIA: General, Dr. Davis. DESCRIPTION OF OPERATION: With the patient in the supine position, under adequate general anesthesia, the abdomen was prepped and draped in the usual sterile manner. The patient had a previous upper midline incision and with the patient anesthetized, a mass was palpable in the right upper quadrant just to the right of this incision. The incision was reopened in the midline from the xiphoid to the umbilicus and taken down through the subcutaneous tissue. Old Prolene sutures were excised from the midline incision and the peritoneum was exposed. The peritoneum was elevated and incised to enter the layer over which was made up of primarily fatty omental-type tissue. Division of this omentum allowed access to the small bowel and there was noted to be dilated proximal small bowel which upon palpation was noted to enter a narrow internal hernia in the right upper quadrant. This loop of bowel was gently retracted, and there was not noted to be any damage and upon reducing this internal hernia, the material was noted to pass from the previously dilated proximal bowel into the previously collapsed distal small bowel. The bowel was then followed proximally to the ligament of Treitz and no additional sites of obstruction or internal herniation were identified. There were slightly more extensive adhesions along the right abdominal sidewall where there were adhesions noted between the omentum and the sidewall as well as some loops of bowel, and these were sharply taken down to avoid any additional obstruction. In addition, a segment of the omentum was serially clamped, divided, and ligated to release another potential internal hernia. When this had been completed, the remainder of the distal small bowel was examined and no other additional hernias were identified. The head of the pancreas was palpated and noted to contain a hard structure which from the preoperative CT scan appeared to possibly represent a previously placed stent or calcification of the head of the pancreas as this was asymptomatic. No other action was taken regarding this. The operative site was examined for hemostasis and after irrigation with warm saline, the midline fascia was closed with the running suture of double stranded and #1 PDS. The skin was closed with yury. Dry sterile dressing was applied. The patient tolerated the procedure well and transferred to the recovery room in stable condition. Estimated blood loss of the procedure was 50 mL. Vaughn Jurado MD
[2017-05-05 06:40] LABS: HEMOGLOBIN 12.8 g/dL (12.0-18.0); MEAN CELL VOLUME 88.6 fl (80.0-94.0); MEAN CORPUSCULAR HEMOGLOBIN 30.1 pg (27.0-31.0); MEAN CORPUSCULAR HGB CONC 33.9 g/dL (33.0-37.0); RBC 4.27 Mil/uL (4.40-5.90); RED CELL DISTRIBUTION WIDTH 14.3 % (11.5-14.5); WHITE BLOOD COUNT 10.7 K/uL (4.8-10.8)
[2017-05-05 06:49] LABS: BLOOD UREA NITROGEN 11 mg/dl (9-20); CALCIUM 8.9 mg/dL (8.4-10.2); GFR AFRICAN-AMERICAN > 60; GFR NON-AFRICAN AMERICAN > 60
[2017-05-05] MEDS: Enoxaparin 40 mg Syringe SC SCH (09:11)
--- NOTE | 2017-05-05 11:04 | CP.PCM.PN ---
Subjective - Date & Time of Evaluation Date of Evaluation: 05/05/17 Time of Evaluation: 11:00 - Subjective Subjective: No fever no longer confused - will d/c 1:1 denies CP sl cough no SOB abd pain controlled no N/V Objective - Vital Signs/Intake and Output Vital Signs (last 24 hours): Temp Pulse Resp BP Pulse Ox 98.7 F 105 H 20 158/83 H 96 05/05/17 09:00 05/05/17 09:00 05/05/17 09:00 05/05/17 09:00 05/05/17 09:00 Intake and Output: 05/05/17 05/05/17 06:59 18:59 Intake Total 1800 Output Total 3100 Balance -1300 - Medications Medications: Current Medications Albuterol/Ipratropium (Duoneb 3 Mg/0.5 Mg (3 Ml) Ud) 3 ml INH RQ6 PRN PRN Reason: Shortness of Breath Dextrose (Dextrose 50% Inj) 0 ml IV STAT PRN; Protocol PRN Reason: Hyglycemia Protocol Dextrose (Glutose 15) 0 gm PO ONCE PRN; Protocol PRN Reason: Hypoglycemia Protocol Enoxaparin Sodium (Lovenox) 40 mg SC DAILY KRISTY PRN Reason: Protocol Last Admin: 05/05/17 09:11 Dose: 40 mg Famotidine (Pepcid) 20 mg IVP DAILY [facility] Last Admin: 05/04/17 09:24 Dose: 20 mg Glucagon (Glucagen Diagnostic Kit) 0 mg IM STAT PRN; Protocol PRN Reason: Hypoglycemia Protocol Hydromorphone HCl (Dilaudid) 0.5 mg IVP Q3H PRN PRN Reason: Pain, moderate (4-7) Last Admin: 05/05/17 01:58 Dose: 0.5 mg Lactated Ringer's (Lactated Ringer's) 1,000 mls @ 150 mls/hr IV .Q6H40M [facility] Last Admin: 05/05/17 00:14 Dose: 150 mls/hr Insulin Human Regular (Humulin R) 0 units SC ACHS KRISTY PRN Reason: Protocol Last Admin: 05/05/17 09:10 Dose: Not Given Ondansetron HCl (Zofran Inj) 4 mg IVP Q4 PRN PRN Reason: Nausea/Vomiting Last Admin: 05/04/17 09:20 Dose: 4 mg - Labs Labs: 05/05/17 05:30 05/05/17 05:30 PT 11.5 Seconds (9.8-13.1) 05/03/17 22:37 INR 1.1 (0.9-1.2) 05/03/17 22:37 APTT 33.6 Seconds (25.6-37.1) 05/03/17 22:37 - Constitutional Appears: No Acute Distress, Chronically Ill - Head Exam Head Exam: NORMAL INSPECTION, NORMOCEPHALIC - Eye Exam Eye Exam: EOMI, Normal appearance Pupil Exam: NORMAL ACCOMODATION - ENT Exam ENT Exam: Mucous Membranes Dry, Normal External Ear Exam - Neck Exam Neck Exam: Full ROM. absent: Meningismus - Respiratory Exam Respiratory Exam: Rhonchi, NORMAL BREATHING PATTERN. absent: Rales, Wheezes, Respiratory Distress - Cardiovascular Exam Cardiovascular Exam: REGULAR RHYTHM, +S1, +S2 - GI/Abdominal Exam GI & Abdominal Exam: Tenderness, Hypoactive Bowel Sounds - Extremities Exam Extremities Exam: Full ROM, Normal Capillary Refill. absent: Calf Tenderness - Back Exam Back Exam: Full ROM. absent: CVA tenderness (L), CVA tenderness (R) - Neurological Exam Neurological Exam: Alert, Awake, CN II-XII Intact, Oriented x3 Neuro motor strength exam: Left Upper Extremity: 5, Right Upper Extremity: 5, Left Lower Extremity: 5, Right Lower Extremity: 5 - Psychiatric Exam Psychiatric exam: Flat Affect, Normal Mood - Skin Skin Exam: Dry, Normal Color, Warm Assessment and Plan (1) Small bowel obstruction Status: Acute (2) Internal hernia Status: Acute (3) Atelectasis Status: Acute (4) DM type 2 (diabetes mellitus, type 2) Status: Chronic (5) BPH (benign prostatic hyperplasia) Status: Chronic (6) DVT prophylaxis Status: Acute - Assessment and Plan (Free Text) Assessment: 81 y/o gent with hx of DM, BPH, Gastritis, Diverticulosis , came in because of severe abdominal pain. CT of the Abd: high grade SBO. Pt was admitted, kept NPO, IVF started. Surgery was consulted - underwent Explor Lap , Adhesiolysis and Repair of Internal Hernia on 05/04. Post op became confused. Placed on 1:1 monitoring for safety. Today , he is doing well, no longer confused. (1) Small bowel obstruction sec to Adhesions s/p Explor Lap , Adhesiolysis and repair of internal hernia Status: Acute Pt doing well post op, + flatus, no BM Surgery following pt cont IVF hydration Pain mgt (2) Internal hernia s/p Repair Status: Acute as above (3) Atelectasis vs Infiltrate seen on CXR Status: Acute rpt CXR no fever, no leukocytosis, ahs sl cough, no dyspnea ID consult for need to start empiric IV antibiotics for the infiltrates and post op for poss abd proph (4) DM type 2 (diabetes mellitus, type 2) Status: Chronic accucheck q ACHS will restart oral hypoglycemics once diet started (5) BPH (benign prostatic hyperplasia) Status: Chronic cont Flomax 6. Delirium post op like due to meds /anesthesia pt was placed on 1:1 now alert, oriented - will d/c 1:1 (7) DVT prophylaxis Lovenox
--- NOTE | 2017-05-05 11:08 | CP.PCM.CON ---
History of Present Illness - History of Present Illness History of Present Illness: Infectious Disease Consultation Note- Asked to see this patient at the request of . HPI- Pt. is a 81 year old amle with pmh of DM II, BPH, Diverticulosis and gastritis who was admitted to the hospital with c/o acute sharp epigastric pain and he was found to have SBO secondary to adhesions and underwent ex lap , internal hernia repair and adhesiolysis by the surgeon and I'm asked to see the patient so ee whether he require any IV abx since he has slight erythema around surgical site pt has hx of multiple abdominal surgery ( cholecystectomy, pncreatic surgery ) in the past. Pt. currently resting comfortably and denies any abdominal pain. apparently after anesthesia yesterday he was confused and agitated but that has resoved today. he denies any fever or chills, denies any nausea, denies any cough. Review of Systems - Review of Systems Review of Systems: ROS- denies any fever or chills, denies any JEAN, denies any cough, denies any any sob , denies any chest pain, denies any abd pain now , denies any diarrhea, denies any n/v had abd. pain on admission but no pain today Past Patient History - Past Medical History & Family History Past Medical History?: Yes - Past Social History Chewing Tobacco Use: No Cigar Use: No Alcohol: None Drugs: Denies - CARDIAC Hx Cardiac Disorders: No Hx Hypercholesterolemia: Yes - PULMONARY Hx Respiratory Disorders: No - NEUROLOGICAL Hx Neurological Disorder: No - HEENT Hx HEENT Problems: No - RENAL Hx Chronic Kidney Disease: No - ENDOCRINE/METABOLIC Hx Endocrine Disorders: Yes Hx Diabetes Mellitus Type 2: Yes - HEMATOLOGICAL/ONCOLOGICAL Hx Blood Disorders: No - INTEGUMENTARY Hx Dermatological Problems: No - MUSCULOSKELETAL/RHEUMATOLOGICAL Hx Arthritis: Yes - GASTROINTESTINAL Hx Gastritis: Yes - GENITOURINARY/GYNECOLOGICAL Hx Genitourinary Disorders: No - PSYCHIATRIC Hx Emotional Abuse: No Hx Physical Abuse: No Hx Substance Use: No - SURGICAL HISTORY Hx Surgeries: Yes Other/Comment: PROSTATECTOMY, PANCREAS SX - ANESTHESIA Hx Anesthesia: Yes Hx Anesthesia Reactions: No Hx Malignant Hyperthermia: No Meds Allergies/Adverse Reactions: Allergies Allergy/AdvReac Type Severity Reaction Status Date / Time No Known Allergies Allergy Verified 10/04/15 11:24 - Medications Medications: Current Medications Albuterol/Ipratropium (Duoneb 3 Mg/0.5 Mg (3 Ml) Ud) 3 ml INH RQ6 PRN PRN Reason: Shortness of Breath Dextrose (Dextrose 50% Inj) 0 ml IV STAT PRN; Protocol PRN Reason: Hyglycemia Protocol Dextrose (Glutose 15) 0 gm PO ONCE PRN; Protocol PRN Reason: Hypoglycemia Protocol Enoxaparin Sodium (Lovenox) 40 mg SC DAILY KRISTY PRN Reason: Protocol Last Admin: 05/05/17 09:11 Dose: 40 mg Famotidine (Pepcid) 20 mg IVP DAILY [facility] Last Admin: 05/04/17 09:24 Dose: 20 mg Glucagon (Glucagen Diagnostic Kit) 0 mg IM STAT PRN; Protocol PRN Reason: Hypoglycemia Protocol Hydromorphone HCl (Dilaudid) 0.5 mg IVP Q3H PRN PRN Reason: Pain, moderate (4-7) Last Admin: 05/05/17 01:58 Dose: 0.5 mg Lactated Ringer's (Lactated Ringer's) 1,000 mls @ 150 mls/hr IV .Q6H40M [facility] Last Admin: 05/05/17 00:14 Dose: 150 mls/hr Insulin Human Regular (Humulin R) 0 units SC ACHS [facility] PRN Reason: Protocol Last Admin: 05/05/17 09:10 Dose: Not Given Ondansetron HCl (Zofran Inj) 4 mg IVP Q4 PRN PRN Reason: Nausea/Vomiting Last Admin: 05/04/17 09:20 Dose: 4 mg Physical Exam - Constitutional Appears: Non-toxic, No Acute Distress - Head Exam Head Exam: ATRAUMATIC - Eye Exam Eye Exam: EOMI, PERRL - ENT Exam ENT Exam: Normal Oropharynx - Neck Exam Neck exam: Positive for: Full Rom - Respiratory Exam Respiratory Exam: Clear to Auscultation Bilateral, NORMAL BREATHING PATTERN - Cardiovascular Exam Cardiovascular Exam: RRR - GI/Abdominal Exam GI & Abdominal Exam: Soft Additional comments: No distention abdominal surgical site with yury in place No discharge minimal erythema round mid yury only no tenderness to palpation - Extremities Exam Extremities exam: Positive for: normal inspection - Neurological Exam Neurological exam: Alert, Oriented x3 Results - Vital Signs Recent Vital Signs: Last Vital Signs Temp 98.7 F 05/05/17 09:00 Pulse 105 H 05/05/17 09:00 Resp 20 05/05/17 09:00 BP 158/83 H 05/05/17 09:00 Pulse Ox 96 05/05/17 09:00 - Labs Result Diagrams: 05/05/17 05:30 05/05/17 05:30 Labs: Laboratory Results - last 24 hr 05/04/17 05/04/17 05/04/17 04:27 09:00 09:53 WBC RBC Hgb Hct MCV MCH MCHC RDW Plt Count Sodium Potassium Chloride Carbon Dioxide Anion Gap BUN Creatinine Est GFR ( Amer) Est GFR (Non-Af Amer) POC Glucose (mg/dL) Random Glucose Hemoglobin A1c 6.7 H Calcium Procalcitonin < 0.05 L Blood Type O POSITIVE Blood Type Confirm Antibody Screen Negative Crossmatch See Detail BBK History Checked No verified bt 05/04/17 05/04/17 05/04/17 10:14 11:22 14:30 WBC RBC Hgb Hct MCV MCH MCHC RDW Plt Count Sodium Potassium Chloride Carbon Dioxide Anion Gap BUN Creatinine Est GFR ( Amer) Est GFR (Non-Af Amer) POC Glucose (mg/dL) 164 H 135 H Random Glucose Hemoglobin A1c Calcium Procalcitonin Blood Type Blood Type Confirm O POSITIVE Antibody Screen Crossmatch BBK History Checked 05/04/17 05/04/17 05/05/17 17:01 21:00 05:23 WBC RBC Hgb Hct MCV MCH MCHC RDW Plt Count Sodium Potassium Chloride Carbon Dioxide Anion Gap BUN Creatinine Est GFR ( Amer) Est GFR (Non-Af Amer) POC Glucose (mg/dL) 163 H 224 H 221 H Random Glucose Hemoglobin A1c Calcium Procalcitonin Blood Type Blood Type Confirm Antibody Screen Crossmatch BBK History Checked 05/05/17 05/05/17 05:30 05:30 WBC 10.7 RBC 4.27 L Hgb 12.8 Hct 37.8 MCV 88.6 MCH 30.1 MCHC 33.9 RDW 14.3 Plt Count 153 Sodium 135 Potassium 4.0 Chloride 100 Carbon Dioxide 27 Anion Gap 11 BUN 11 Creatinine 0.7 L Est GFR ( Amer) > 60 Est GFR (Non-Af Amer) > 60 POC Glucose (mg/dL) Random Glucose 215 H Hemoglobin A1c Calcium 8.9 Procalcitonin Blood Type Blood Type Confirm Antibody Screen Crossmatch BBK History Checked Laboratory Results - last 72 hr 05/03/17 05/03/17 05/03/17 21:43 22:10 22:37 WBC 5.4 RBC 4.41 Hgb 13.4 Hct 39.1 MCV 88.8 MCH 30.4 MCHC 34.2 RDW 14.5 Plt Count 155 MPV 9.0 Neut % (Auto) 59.2 Lymph % (Auto) 27.3 [place] % (Auto) 10.0 Eos % (Auto) 2.9 Baso % (Auto) 0.6 Neut # 3.2 Lymph # 1.5 [place] # 0.5 Eos # 0.2 Baso # 0.0 PT INR APTT pO2 24 L VBG pH 7.44 H VBG pCO2 44 VBG HCO3 27.4 VBG Total CO2 31.3 H VBG O2 Sat (Calc) 55.5 VBG Base Excess 5.0 H VBG Potassium 3.8 Sodium 139.0 Chloride 103.0 Glucose 120 H Lactate 1.5 FiO2 21.0 Potassium Carbon Dioxide Anion Gap BUN Creatinine Est GFR ( Amer) Est GFR (Non-Af Amer) POC Glucose (mg/dL) 128 H Random Glucose Hemoglobin A1c Calcium Phosphorus Magnesium Total Bilirubin AST ALT Alkaline Phosphatase Troponin I Total Protein Albumin Globulin Albumin/Globulin Ratio Lipase Procalcitonin TSH 3rd Generation Venous Blood Potassium 3.8 Blood Type Blood Type Confirm Antibody Screen Crossmatch BBK History Checked 05/03/17 05/03/17 05/04/17 22:37 22:37 04:27 WBC RBC Hgb Hct MCV MCH MCHC RDW Plt Count MPV Neut % (Auto) Lymph % (Auto) [place] % (Auto) Eos % (Auto) Baso % (Auto) Neut # Lymph # [place] # Eos # Baso # PT 11.5 INR 1.1 APTT 33.6 pO2 VBG pH VBG pCO2 VBG HCO3 VBG Total CO2 VBG O2 Sat (Calc) VBG Base Excess VBG Potassium Sodium 140 138 Chloride 103 102 Glucose Lactate FiO2 Potassium 3.9 3.9 Carbon Dioxide 27 25 Anion Gap 14 15 BUN 13 12 Creatinine 0.8 0.7 L Est GFR ( Amer) > 60 > 60 Est GFR (Non-Af Amer) > 60 > 60 POC Glucose (mg/dL) Random Glucose 114 H 174 H Hemoglobin A1c Calcium 10.0 9.1 Phosphorus 3.0 Magnesium 1.9 Total Bilirubin 0.5 AST 30 ALT 41 Alkaline Phosphatase 52 Troponin I < 0.0120 Total Protein 7.2 Albumin 4.5 Globulin 2.8 Albumin/Globulin Ratio 1.6 Lipase 51 Procalcitonin TSH 3rd Generation 4.08 Venous Blood Potassium Blood Type Blood Type Confirm Antibody Screen Crossmatch BBK History Checked 05/04/17 05/04/17 05/04/17 04:27 04:27 05:43 WBC 7.6 RBC 4.30 L Hgb 13.3 Hct 38.3 MCV 89.2 MCH 31.1 H MCHC 34.8 RDW 14.6 H Plt Count 139 MPV 8.7 Neut % (Auto) 70.0 Lymph % (Auto) 22.3 [place] % (Auto) 6.9 Eos % (Auto) 0.4 Baso % (Auto) 0.4 Neut # 5.3 Lymph # 1.7 [place] # 0.5 Eos # 0.0 Baso # 0.0 PT INR APTT pO2 VBG pH VBG pCO2 VBG HCO3 VBG Total CO2 VBG O2 Sat (Calc) VBG Base Excess VBG Potassium Sodium Chloride Glucose Lactate FiO2 Potassium Carbon Dioxide Anion Gap BUN Creatinine Est GFR ( Amer) Est GFR (Non-Af Amer) POC Glucose (mg/dL) 211 H Random Glucose Hemoglobin A1c 6.7 H Calcium Phosphorus Magnesium Total Bilirubin AST ALT Alkaline Phosphatase Troponin I Total Protein Albumin Globulin Albumin/Globulin Ratio Lipase Procalcitonin TSH 3rd Generation Venous Blood Potassium Blood Type Blood Type Confirm Antibody Screen Crossmatch BBK History Checked 05/04/17 05/04/17 05/04/17 09:00 09:53 10:14 WBC RBC Hgb Hct MCV MCH MCHC RDW Plt Count MPV Neut % (Auto) Lymph % (Auto) [place] % (Auto) Eos % (Auto) Baso % (Auto) Neut # Lymph # [place] # Eos # Baso # PT INR APTT pO2 VBG pH VBG pCO2 VBG HCO3 VBG Total CO2 VBG O2 Sat (Calc) VBG Base Excess VBG Potassium Sodium Chloride Glucose Lactate FiO2 Potassium Carbon Dioxide Anion Gap BUN Creatinine Est GFR ( Amer) Est GFR (Non-Af Amer) POC Glucose (mg/dL) Random Glucose Hemoglobin A1c Calcium Phosphorus Magnesium Total Bilirubin AST ALT Alkaline Phosphatase Troponin I Total Protein Albumin Globulin Albumin/Globulin Ratio Lipase Procalcitonin < 0.05 L TSH 3rd Generation Venous Blood Potassium Blood Type O POSITIVE Blood Type Confirm O POSITIVE Antibody Screen Negative Crossmatch See Detail BBK History Checked No verified bt 05/04/17 05/04/17 05/04/17 11:22 14:30 17:01 WBC RBC Hgb Hct MCV MCH MCHC RDW Plt Count MPV Neut % (Auto) Lymph % (Auto) [place] % (Auto) Eos % (Auto) Baso % (Auto) Neut # Lymph # [place] # Eos # Baso # PT INR APTT pO2 VBG pH VBG pCO2 VBG HCO3 VBG Total CO2 VBG O2 Sat (Calc) VBG Base Excess VBG Potassium Sodium Chloride Glucose Lactate FiO2 Potassium Carbon Dioxide Anion Gap BUN Creatinine Est GFR ( Amer) Est GFR (Non-Af Amer) POC Glucose (mg/dL) 164 H 135 H 163 H Random Glucose Hemoglobin A1c Calcium Phosphorus Magnesium Total Bilirubin AST ALT Alkaline Phosphatase Troponin I Total Protein Albumin Globulin Albumin/Globulin Ratio Lipase Procalcitonin TSH 3rd Generation Venous Blood Potassium Blood Type Blood Type Confirm Antibody Screen Crossmatch BBK History Checked 05/04/17 05/05/17 05/05/17 21:00 05:23 05:30 WBC 10.7 RBC 4.27 L Hgb 12.8 Hct 37.8 MCV 88.6 MCH 30.1 MCHC 33.9 RDW 14.3 Plt Count 153 MPV Neut % (Auto) Lymph % (Auto) [place] % (Auto) Eos % (Auto) Baso % (Auto) Neut # Lymph # [place] # Eos # Baso # PT INR APTT pO2 VBG pH VBG pCO2 VBG HCO3 VBG Total CO2 VBG O2 Sat (Calc) VBG Base Excess VBG Potassium Sodium Chloride Glucose Lactate FiO2 Potassium Carbon Dioxide Anion Gap BUN Creatinine Est GFR ( Amer) Est GFR (Non-Af Amer) POC Glucose (mg/dL) 224 H 221 H Random Glucose Hemoglobin A1c Calcium Phosphorus Magnesium Total Bilirubin AST ALT Alkaline Phosphatase Troponin I Total Protein Albumin Globulin Albumin/Globulin Ratio Lipase Procalcitonin TSH 3rd Generation Venous Blood Potassium Blood Type Blood Type Confirm Antibody Screen Crossmatch BBK History Checked 05/05/17 05/05/17 05:30 11:34 WBC RBC Hgb Hct MCV MCH MCHC RDW Plt Count MPV Neut % (Auto) Lymph % (Auto) [place] % (Auto) Eos % (Auto) Baso % (Auto) Neut # Lymph # [place] # Eos # Baso # PT INR APTT pO2 VBG pH VBG pCO2 VBG HCO3 VBG Total CO2 VBG O2 Sat (Calc) VBG Base Excess VBG Potassium Sodium 135 Chloride 100 Glucose Lactate FiO2 Potassium 4.0 Carbon Dioxide 27 Anion Gap 11 BUN 11 Creatinine 0.7 L Est GFR ( Amer) > 60 Est GFR (Non-Af Amer) > 60 POC Glucose (mg/dL) 181 H Random Glucose 215 H Hemoglobin A1c Calcium 8.9 Phosphorus Magnesium Total Bilirubin AST ALT Alkaline Phosphatase Troponin I Total Protein Albumin Globulin Albumin/Globulin Ratio Lipase Procalcitonin TSH 3rd Generation Venous Blood Potassium Blood Type Blood Type Confirm Antibody Screen Crossmatch BBK History Checked Microbiology 05/03/17 22:37 Blood Blood Culture - Preliminary NO GROWTH AFTER 24 HOURS Accession No. : [id number] Patient Name / ID : JUSTIN HARMON / [id number] Exam Date : 05/03/2017 23:27:04 ( Approved ) Study Comment : Sex / Age : M / 81Y Creator : SHAYLEE LUZ Dictator : Manager Of Administration : Lead Project Manager : SHAYLEE LUZ Approver2 : Report Date : 05/04/2017 00:22:00 My Comment : [facility] Division of Radiology [address] [place] [address] Tel. no. Patient Name: FAUSTINO ANDERSON Pt. Address: [address] [place] [address] Med. Rec #: [id number] [place] [address]: Jalen BAKER,Maxi Simmons Pt CELL Order Location: . : 1935 Male Age: 81 Order #: [id number] Reason for exam: abd pain CT Scan ABD PELVIS PO IV CONTRAST Exam Date: 05/03/17 This imaging exam was performed at [facility] EXAM: CT Abdomen and Pelvis With Intravenous Contrast CLINICAL HISTORY: 81 years old, male; Pain; Abdominal pain; Epigastric; Prior surgery; Surgery date: 6+ months; Surgery type: Gall bladder removed; Additional info: Abd pain TECHNIQUE: Axial computed tomography images of the abdomen and pelvis with intravenous contrast. This CT exam was performed using one or more of the following dose reduction techniques: automated exposure control, adjustment of the mA and/or kV according to patient size, and/or use of iterative reconstruction technique. Coronal and sagittal reformatted images were created and reviewed. CONTRAST: 90 mL of [id number] administered intravenously. COMPARISON: CT - ABD PELVIS PO IV CONTRAST 10/04/2015 3:15:04 PM FINDINGS: Lower thorax: Right basilar atelectasis. ABDOMEN: Liver: No acute findings. Gallbladder and bile ducts: The gallbladder is surgically absent. No significant intra- or extrahepatic biliary ductal dilation. Pancreas: Enhances homogeneously. No ductal dilation. No discrete mass. Spleen: No acute findings. Adrenals: No acute findings. Kidneys and ureters: No acute findings. No hydronephrosis or renal calculi. No discrete solid mass. PELVIS: Bladder: No acute findings. Reproductive: No acute findings. Appendix: The air filled appendix is of normal caliber (series 3, image 107; series 601, image 62) . ABDOMEN and PELVIS: Stomach and bowel: Moderate bowel distention is identified within the mid to distal small bowel with adjacent free fluid. Hyperemia is also detected within these loops of bowel. Distal decompression is identified. Colonic diverticulosis is identified, without inflammation. Peritoneum: As above. Lymph nodes: No pathologically enlarged lymph nodes. Vasculature: Calcified atherosclerotic disease. Bones: No acute fracture. IMPRESSION: Findings within the mid to distal small bowel for which a high-grade small bowel obstruction is suspected, possibly a closed loop - for which clinical correlation and surgical consultation is suggested. Dictated By: Shaylee Luz MD Dictated Date/Time: 05/04/1721 Signed By: Shaylee Luz MD Date Signed: 21 Transcribed By: ELLIE Transcribe Date/Time : 05/04/1721 GRACIELA/CARRIE Accession No. : [id number] Patient Name / ID : JUSTIN HARMON / [id number] Exam Date : 05/03/2017 21:42:06 ( Approved ) Study Comment : Sex / Age : M / 81Y Creator : Jose Esteban MD Dictator : Jose Esteban MD Manager Of Administration : Lead Project Manager : Jose Esteban MD Approver2 : Report Date : 05/04/2017 11:15:35 My Comment : HISTORY: Abdominal pain. COMPARISON: 12/18/2014 FINDINGS: LUNGS: Atelectasis/infiltrate left lower lobe subsegmental. PLEURA: No significant pleural effusion identified, no pneumothorax apparent. CARDIOVASCULAR: No radiographic findings to suggest acute or significant cardiovascular disease. OSSEOUS STRUCTURES: No significant abnormalities. VISUALIZED UPPER ABDOMEN: Normal. OTHER FINDINGS: None. IMPRESSION: Left lower lobe infiltrate/atelectasis. Assessment & Plan (1) Small bowel obstruction Status: Acute (2) Diabetes mellitus Status: Acute - Assessment and Plan (Free Text) Assessment: A/p- 81 year old male with DM II, BPH, h/o previous surgeries including cholecystectomy was admitted with abd. pain found to have SBO most likely secondary to adhesion POD #1 for ex lap and adhesiolysis. pt. not septic afebrile normal wbc count CXR- was read as LLL infiltrate?atelectasis by the radiologist blood cx- negative plan- advise to place mupirirc ointment around the surgical site in between the yury locally BID. check another blood cx. advise to check repeat CXR as pt. does not have any signs or symptoms of pneumonia. no indication for any systemic abx at this time. Thank you for allowing me to take part in the care of this patient.
--- NOTE | 2017-05-05 11:27 | CP.PCM.PN ---
Subjective - Date & Time of Evaluation Date of Evaluation: 05/05/17 Time of Evaluation: 11:00 - Subjective Subjective: I am better today. I was confused yesterday. Objective - Vital Signs/Intake and Output Vital Signs (last 24 hours): Temp Pulse Resp BP Pulse Ox 98.7 F 105 H 20 158/83 H 96 05/05/17 09:00 05/05/17 09:00 05/05/17 09:00 05/05/17 09:00 05/05/17 09:00 Intake and Output: 05/05/17 05/05/17 06:59 18:59 Intake Total 1800 Output Total 3100 Balance -1300 - Medications Medications: Current Medications Albuterol/Ipratropium (Duoneb 3 Mg/0.5 Mg (3 Ml) Ud) 3 ml INH RQ6 PRN PRN Reason: Shortness of Breath Dextrose (Dextrose 50% Inj) 0 ml IV STAT PRN; Protocol PRN Reason: Hyglycemia Protocol Dextrose (Glutose 15) 0 gm PO ONCE PRN; Protocol PRN Reason: Hypoglycemia Protocol Enoxaparin Sodium (Lovenox) 40 mg SC DAILY [facility] PRN Reason: Protocol Last Admin: 05/05/17 09:11 Dose: 40 mg Famotidine (Pepcid) 20 mg IVP DAILY [facility] Last Admin: 05/04/17 09:24 Dose: 20 mg Glucagon (Glucagen Diagnostic Kit) 0 mg IM STAT PRN; Protocol PRN Reason: Hypoglycemia Protocol Hydromorphone HCl (Dilaudid) 0.5 mg IVP Q3H PRN PRN Reason: Pain, moderate (4-7) Last Admin: 05/05/17 01:58 Dose: 0.5 mg Lactated Ringer's (Lactated Ringer's) 1,000 mls @ 150 mls/hr IV .Q6H40M [facility] Last Admin: 05/05/17 00:14 Dose: 150 mls/hr Insulin Human Regular (Humulin R) 0 units SC ACHS [facility] PRN Reason: Protocol Last Admin: 05/05/17 09:10 Dose: Not Given Ondansetron HCl (Zofran Inj) 4 mg IVP Q4 PRN PRN Reason: Nausea/Vomiting Last Admin: 05/04/17 09:20 Dose: 4 mg - Labs Labs: 05/05/17 05:30 05/05/17 05:30 PT 11.5 Seconds (9.8-13.1) 05/03/17 22:37 INR 1.1 (0.9-1.2) 05/03/17 22:37 APTT 33.6 Seconds (25.6-37.1) 05/03/17 22:37 - Constitutional Appears: Well, No Acute Distress - GI/Abdominal Exam GI & Abdominal Exam: Soft Additional comments: Non tender - Extremities Exam Additional comments: Small ecchymosis on right wrist at previous A line site, denies pain. - Neurological Exam Neurological Exam: Oriented x3 Additional comments: Patient conversive and appropriate. Oriented times three. Denies abdominal pain. States he is breathing well. Reports being confused immediately pre op which he states has now resolved. - Psychiatric Exam Psychiatric exam: Normal Affect, Normal Mood Assessment and Plan - Assessment and Plan (Free Text) Assessment: 81 year old gentleman with post op cognitive dysfunction post op. Plan: Symptoms resolved. Mental status at baseline. Restraints removed as patient no longer combative nor danger to himself or others. One to one observation to be discontinued at the discretion of primary team.
--- NOTE | 2017-05-05 13:42 | CP.PCM.PN ---
Subjective - Date & Time of Evaluation Date of Evaluation: 05/05/17 Time of Evaluation: 13:40 - Subjective Subjective: Surgery for Dr. Jurado Pt s&e. Pt underwent ex lap KATHRYN and reduction of internal hernia yesterday. Pt was agitated after anesthesia. NG was DCed overnight. Pt is better today. Not agitated today. Denies F/C/N/V/D/CP/SOB. Gee had 3L. Objective - Vital Signs/Intake and Output Vital Signs (last 24 hours): Temp Pulse Resp BP Pulse Ox 97.7 F 101 H 18 136/66 95 05/05/17 12:00 05/05/17 12:00 05/05/17 12:00 05/05/17 12:00 05/05/17 12:00 Intake and Output: 05/05/17 05/05/17 06:59 18:59 Intake Total 1800 Output Total 3100 Balance -1300 - Medications Medications: Current Medications Albuterol/Ipratropium (Duoneb 3 Mg/0.5 Mg (3 Ml) Ud) 3 ml INH RQ6 PRN PRN Reason: Shortness of Breath Dextrose (Dextrose 50% Inj) 0 ml IV STAT PRN; Protocol PRN Reason: Hyglycemia Protocol Dextrose (Glutose 15) 0 gm PO ONCE PRN; Protocol PRN Reason: Hypoglycemia Protocol Enoxaparin Sodium (Lovenox) 40 mg SC DAILY [facility] PRN Reason: Protocol Last Admin: 05/05/17 09:11 Dose: 40 mg Famotidine (Pepcid) 20 mg IVP DAILY [facility] Last Admin: 05/05/17 12:58 Dose: 20 mg Glucagon (Glucagen Diagnostic Kit) 0 mg IM STAT PRN; Protocol PRN Reason: Hypoglycemia Protocol Hydromorphone HCl (Dilaudid) 0.5 mg IVP Q3H PRN PRN Reason: Pain, moderate (4-7) Last Admin: 05/05/17 01:58 Dose: 0.5 mg Insulin Human Regular (Humulin R) 0 units SC ACHS [facility] PRN Reason: Protocol Last Admin: 05/05/17 12:32 Dose: 1 units Ondansetron HCl (Zofran Inj) 4 mg IVP Q4 PRN PRN Reason: Nausea/Vomiting Last Admin: 05/04/17 09:20 Dose: 4 mg - Labs Labs: 05/05/17 05:30 05/05/17 05:30 PT 11.5 Seconds (9.8-13.1) 05/03/17 22:37 INR 1.1 (0.9-1.2) 05/03/17 22:37 APTT 33.6 Seconds (25.6-37.1) 05/03/17 22:37 - Constitutional Appears: Non-toxic, No Acute Distress - Head Exam Head Exam: ATRAUMATIC, NORMAL INSPECTION, NORMOCEPHALIC - Eye Exam Eye Exam: EOMI, Normal appearance, PERRL Pupil Exam: NORMAL ACCOMODATION, PERRL - ENT Exam ENT Exam: Mucous Membranes Moist, Normal Exam - Neck Exam Neck Exam: Full ROM, Normal Inspection. absent: Lymphadenopathy - Respiratory Exam Respiratory Exam: Clear to Ausculation Bilateral, NORMAL BREATHING PATTERN - Cardiovascular Exam Cardiovascular Exam: REGULAR RHYTHM, +S1, +S2. absent: Murmur - GI/Abdominal Exam GI & Abdominal Exam: Distended, Soft, Tenderness, Normal Bowel Sounds. absent: Firm, Guarding, Rigid, Mass, Organomegaly, Pulsatile Mass, Rebound Additional comments: Incision has dressing. Mild stain. TTP - Back Exam Back Exam: NORMAL INSPECTION - Neurological Exam Neurological Exam: Alert, Awake, CN II-XII Intact, Oriented x3 - Psychiatric Exam Psychiatric exam: Normal Affect, Normal Mood - Skin Skin Exam: Dry, Intact, Normal Color, Warm. absent: Cyanosis, Erythema Assessment and Plan - Assessment and Plan (Free Text) Assessment: POD 1 s/p ex lap lysis of adhesion and reduction of internal hernia -DC gee -DC restraints -CLD -MOnitor BM -VS -Encourage ambulation DW Dr. Jurado
[2017-05-05] MEDS ORDERED: Sodium Chloride 0.9% 1,000 ML IV SCH (17:45)
[2017-05-05 20:50] LABS: SQUAMOUS EPITHIAL < 1 /hpf (0-5); URINE BACTERIA OCC (<OCC); URINE BILIRUBIN NEGATIVE (NEGATIVE); URINE BLOOD SMALL (NEGATIVE); URINE CLARITY SLIGHTY-CLOUDY (Clear); URINE COLOR YELLOW (YELLOW); URINE GLUCOSE (UA) >=500 mg/dL (Normal); URINE LEUKOCYTE ESTERASE NEG Leu/uL (Negative); URINE NITRATE NEGATIVE (NEGATIVE); URINE PROTEIN NEGATIVE (NEGATIVE); URINE UROBILINOGEN 0.2-1.0 mg/dL (0.2-1.0)
[2017-05-05 20:52] LABS: URINE AMORPHOUS SEDIMENT FEW /ul (<OCC)
--- NOTE | 2017-05-06 07:21 | CP.PCM.PN ---
Subjective - Date & Time of Evaluation Date of Evaluation: 05/06/17 Time of Evaluation: 07:19 - Subjective Subjective: Surgery for Dr. Jurado Pt s&e. JEANNA. Denies F/C/N/V/D. c/o pain. pt is disoriented today. + void. Dark urine. Objective - Vital Signs/Intake and Output Vital Signs (last 24 hours): Temp Pulse Resp BP Pulse Ox 100 F H 98 H 18 128/70 99 05/06/17 01:13 05/06/17 01:13 05/06/17 01:13 05/06/17 01:13 05/06/17 01:13 Intake and Output: 05/06/17 05/06/17 06:59 18:59 Intake Total 720 Balance 720 - Medications Medications: Current Medications Acetaminophen (Tylenol 325mg Tab) 650 mg PO Q4 PRN PRN Reason: Pain, moderate (4-7) Last Admin: 05/06/17 07:02 Dose: 650 mg Albuterol/Ipratropium (Duoneb 3 Mg/0.5 Mg (3 Ml) Ud) 3 ml INH RQ6 PRN PRN Reason: Shortness of Breath Dextrose (Dextrose 50% Inj) 0 ml IV STAT PRN; Protocol PRN Reason: Hyglycemia Protocol Dextrose (Glutose 15) 0 gm PO ONCE PRN; Protocol PRN Reason: Hypoglycemia Protocol Enoxaparin Sodium (Lovenox) 40 mg SC DAILY KRISTY PRN Reason: Protocol Last Admin: 05/05/17 09:11 Dose: 40 mg Famotidine (Pepcid) 20 mg IVP DAILY [facility] Last Admin: 05/05/17 12:58 Dose: 20 mg Glucagon (Glucagen Diagnostic Kit) 0 mg IM STAT PRN; Protocol PRN Reason: Hypoglycemia Protocol Hydromorphone HCl (Dilaudid) 0.5 mg IVP Q3H PRN PRN Reason: Pain, moderate (4-7) Last Admin: 05/05/17 01:58 Dose: 0.5 mg Sodium Chloride (Sodium Chloride 0.9%) 1,000 mls @ 60 mls/hr IV .[id number] [facility] Stop: 05/06/17 17:37 Last Admin: 05/05/17 18:04 Dose: 60 mls/hr Insulin Human Regular (Humulin R) 0 units SC ACHS KRISTY PRN Reason: Protocol Last Admin: 05/05/17 21:43 Dose: Not Given Ketorolac Tromethamine (Toradol) 15 mg IVP Q6 PRN PRN Reason: Pain, moderate (4-7) Mupirocin (Bactroban Ointment) 1 applic TOP BID [facility] Last Admin: 05/05/17 21:46 Dose: Not Given Ondansetron HCl (Zofran Inj) 4 mg IVP Q4 PRN PRN Reason: Nausea/Vomiting Last Admin: 05/04/17 09:20 Dose: 4 mg Tamsulosin HCl (Flomax) 0.4 mg PO DAILY [facility] Last Admin: 05/05/17 18:03 Dose: 0.4 mg - Labs Labs: 05/05/17 05:30 05/05/17 05:30 PT 11.5 Seconds (9.8-13.1) 05/03/17 22:37 INR 1.1 (0.9-1.2) 05/03/17 22:37 APTT 33.6 Seconds (25.6-37.1) 05/03/17 22:37 - Constitutional Appears: No Acute Distress - Head Exam Head Exam: ATRAUMATIC, NORMAL INSPECTION, NORMOCEPHALIC - Eye Exam Eye Exam: EOMI, Normal appearance, PERRL Pupil Exam: NORMAL ACCOMODATION, PERRL - ENT Exam ENT Exam: Mucous Membranes Moist, Normal Exam - Neck Exam Neck Exam: Full ROM, Normal Inspection. absent: Lymphadenopathy - Respiratory Exam Respiratory Exam: Clear to Ausculation Bilateral, NORMAL BREATHING PATTERN - Cardiovascular Exam Cardiovascular Exam: REGULAR RHYTHM, +S1, +S2. absent: Murmur - GI/Abdominal Exam GI & Abdominal Exam: Soft, Tenderness, Normal Bowel Sounds. absent: Distended, Firm, Guarding, Rigid Additional comments: Incision has yury. C/D/I. TTP - Exam Exam: NORMAL INSPECTION External exam: NORMAL EXTERNAL EXAM - Extremities Exam Extremities Exam: Full ROM, Normal Capillary Refill, Normal Inspection. absent : Joint Swelling, Pedal Edema, Tenderness - Back Exam Back Exam: NORMAL INSPECTION - Neurological Exam Neurological Exam: Awake, CN II-XII Intact - Skin Skin Exam: Dry, Intact, Warm Assessment and Plan - Assessment and Plan (Free Text) Assessment: POD 2 s/p ex lap lysis of adhesion and reduction of internal hernia :Pt is disoriented today. -Regular diet -Monitor BM -VS -Physicla therapy Will DW Dr. Jurado
[2017-05-06 07:23] LABS: BLOOD UREA NITROGEN 15 mg/dl (9-20); CALCIUM 9.4 mg/dL (8.4-10.2); GFR AFRICAN-AMERICAN > 60; GFR NON-AFRICAN AMERICAN > 60
[2017-05-06 07:36] LABS: HEMOGLOBIN 13.5 g/dL (12.0-18.0); MEAN CELL VOLUME 86.8 fl (80.0-94.0); MEAN CORPUSCULAR HEMOGLOBIN 30.5 pg (27.0-31.0); MEAN CORPUSCULAR HGB CONC 35.2 g/dL (33.0-37.0); RBC 4.42 Mil/uL (4.40-5.90); RED CELL DISTRIBUTION WIDTH 14.2 % (11.5-14.5)
[2017-05-06] MEDS: Insulin Regular 100 units/ml SC SCH ×5 (09:55→22:00)
[2017-05-06] MEDS: Enoxaparin 40 mg Syringe SC SCH (09:56)
[2017-05-06] MEDS: Sodium Chloride 0.9% 1,000 ML IV SCH ×2 (09:57→19:18)
--- NOTE | 2017-05-06 11:32 | CP.PCM.PN ---
Subjective - Date & Time of Evaluation Date of Evaluation: 05/06/17 Time of Evaluation: 11:00 - Subjective Subjective: Low grade fever 100 at 1 am but otherwise has remained afebrile WBC ct normal Abd pain controlled tolerating Liquid dit no N/V no CP no SOB Objective - Vital Signs/Intake and Output Vital Signs (last 24 hours): Temp Pulse Resp BP Pulse Ox 98.7 F 105 H 20 122/66 96 05/06/17 08:23 05/06/17 10:58 05/06/17 08:23 05/06/17 10:58 05/06/17 10:58 Intake and Output: 05/06/17 05/06/17 06:59 18:59 Intake Total 720 Balance 720 - Medications Medications: Current Medications Acetaminophen (Tylenol 325mg Tab) 650 mg PO Q4 PRN PRN Reason: Pain, moderate (4-7) Last Admin: 05/06/17 07:02 Dose: 650 mg Albuterol/Ipratropium (Duoneb 3 Mg/0.5 Mg (3 Ml) Ud) 3 ml INH RQ6 PRN PRN Reason: Shortness of Breath Dextrose (Dextrose 50% Inj) 0 ml IV STAT PRN; Protocol PRN Reason: Hyglycemia Protocol Dextrose (Glutose 15) 0 gm PO ONCE PRN; Protocol PRN Reason: Hypoglycemia Protocol Enoxaparin Sodium (Lovenox) 40 mg SC DAILY KRISTY PRN Reason: Protocol Last Admin: 05/06/17 09:56 Dose: 40 mg Famotidine (Pepcid) 20 mg IVP DAILY [facility] Last Admin: 05/06/17 09:56 Dose: 20 mg Glucagon (Glucagen Diagnostic Kit) 0 mg IM STAT PRN; Protocol PRN Reason: Hypoglycemia Protocol Hydromorphone HCl (Dilaudid) 0.5 mg IVP Q3H PRN PRN Reason: Pain, moderate (4-7) Last Admin: 05/05/17 01:58 Dose: 0.5 mg Sodium Chloride (Sodium Chloride 0.9%) 1,000 mls @ 100 mls/hr IV .Q10H [facility] Stop: 05/06/17 17:37 Last Admin: 05/06/17 09:57 Dose: 100 mls/hr Insulin Human Regular (Humulin R) 0 units SC ACHS KRISTY PRN Reason: Protocol Last Admin: 05/06/17 09:56 Dose: 2 units Ketorolac Tromethamine (Toradol) 15 mg IVP Q6 PRN PRN Reason: Pain, moderate (4-7) Mupirocin (Bactroban Ointment) 1 applic TOP BID [facility] Last Admin: 05/06/17 09:49 Dose: Not Given Ondansetron HCl (Zofran Inj) 4 mg IVP Q4 PRN PRN Reason: Nausea/Vomiting Last Admin: 05/04/17 09:20 Dose: 4 mg Tamsulosin HCl (Flomax) 0.4 mg PO DAILY [facility] Last Admin: 05/06/17 09:54 Dose: 0.4 mg - Labs Labs: 05/06/17 06:55 05/06/17 06:55 PT 11.5 Seconds (9.8-13.1) 05/03/17 22:37 INR 1.1 (0.9-1.2) 05/03/17 22:37 APTT 33.6 Seconds (25.6-37.1) 05/03/17 22:37 - Constitutional Appears: No Acute Distress, Chronically Ill - Head Exam Head Exam: NORMAL INSPECTION, NORMOCEPHALIC - Eye Exam Eye Exam: EOMI, Normal appearance Pupil Exam: NORMAL ACCOMODATION - ENT Exam ENT Exam: Mucous Membranes Dry, Normal External Ear Exam - Neck Exam Neck Exam: Full ROM. absent: Meningismus - Respiratory Exam Respiratory Exam: Rhonchi, NORMAL BREATHING PATTERN. absent: Rales, Wheezes, Respiratory Distress - Cardiovascular Exam Cardiovascular Exam: REGULAR RHYTHM, +S1, +S2 - GI/Abdominal Exam GI & Abdominal Exam: slight Tenderness, normoactive Bowel Sounds soft, yury intact , surgical wound clean - Extremities Exam Extremities Exam: Full ROM, Normal Capillary Refill. absent: Calf Tenderness - Back Exam Back Exam: Full ROM. absent: CVA tenderness (L), CVA tenderness (R) - Neurological Exam Neurological Exam: Alert, Awake, CN II-XII Intact, Oriented x3 Neuro motor strength exam: Left Upper Extremity: 5, Right Upper Extremity: 5, Left Lower Extremity: 5, Right Lower Extremity: 5 - Psychiatric Exam Psychiatric exam: Flat Affect, Normal Mood - Skin Skin Exam: Dry, Normal Color, Warm Assessment and Plan (1) Small bowel obstruction Status: Acute (2) Internal hernia Status: Acute (3) Atelectasis Status: Acute (4) DM type 2 (diabetes mellitus, type 2) Status: Chronic (5) BPH (benign prostatic hyperplasia) Status: Chronic (6) DVT prophylaxis Status: Acute - Assessment and Plan (Free Text) Assessment: 81 y/o gent with hx of DM, BPH, Gastritis, Diverticulosis , came in because of severe abdominal pain. CT of the Abd: high grade SBO. Pt was admitted, kept NPO, IVF started. Surgery was consulted - underwent Explor Lap , Adhesiolysis and Repair of Internal Hernia on 05/04. Post op pt became confused. Placed on 1:1 monitoring for safety. Today , he is doing well, no longer confused. (1) Small bowel obstruction sec to Adhesions s/p Explor Lap , Adhesiolysis and repair of internal hernia Status: Acute Pt doing well post op, + flatus, no BM Surgery following pt cont IVF hydration Pain mgt Diet upgraded to Regular by Surgery (2) Internal hernia s/p Repair Status: Acute as above (3) Atelectasis vs Infiltrate seen on CXR Status: Acute rpt CXR- negative no fever, no leukocytosis, sl cough, no dyspnea ID consulted for need to start empiric IV antibiotics for the infiltrates and post op for poss abd proph ID rec NO abx (4) DM type 2 (diabetes mellitus, type 2) Status: Chronic accucheck q ACHS will restart oral hypoglycemics - low dose Glipizide only for now (5) BPH (benign prostatic hyperplasia) Status: Chronic cont Flomax 6. Delirium post op like due to meds /anesthesia pt was placed on 1:1 now alert, oriented - off 1:1 since yesterday (7) DVT prophylaxis Lovenox
--- NOTE | 2017-05-06 11:41 | RAD ---
HISTORY: Small-bowel obstruction. COMPARISON: 05/03/2017. TECHNIQUE: Chest PA and lateral FINDINGS: LUNGS: No active pulmonary disease. PLEURA: No significant pleural effusion identified. No pneumothorax apparent. CARDIOVASCULAR: No radiographic findings to suggest acute or significant cardiovascular disease. OSSEOUS STRUCTURES: No significant abnormalities. VISUALIZED UPPER ABDOMEN: Normal. OTHER FINDINGS: None. IMPRESSION: No active disease. No significant interval change compared to the prior examination(s).
[2017-05-06] MEDS ORDERED: Oxycodone/Acetaminophen 5/325 mg Tab PO PRN ×2 (12:10→16:01)
[2017-05-06] MEDS ORDERED: HYDROmorphone 0.5 mg/0.5 ml ISec IVP PRN (12:11)
--- NOTE | 2017-05-06 13:46 | CP.PCM.PN ---
Subjective - Date & Time of Evaluation Date of Evaluation: 05/06/17 Time of Evaluation: 15:00 - Subjective Subjective: ID Note- Pt. seen and examined today. denies any fever or chills but c/o slight pain in abdomen surgical region since he did physical therapy earlier today. denies any nausea. Objective - Vital Signs/Intake and Output Vital Signs (last 24 hours): Temp Pulse Resp BP Pulse Ox 98.7 F 105 H 20 122/66 96 05/06/17 08:23 05/06/17 10:58 05/06/17 08:23 05/06/17 10:58 05/06/17 10:58 Intake and Output: 05/06/17 05/06/17 06:59 18:59 Intake Total 720 Balance 720 - Medications Medications: Current Medications Albuterol/Ipratropium (Duoneb 3 Mg/0.5 Mg (3 Ml) Ud) 3 ml INH RQ6 PRN PRN Reason: Shortness of Breath Dextrose (Dextrose 50% Inj) 0 ml IV STAT PRN; Protocol PRN Reason: Hyglycemia Protocol Dextrose (Glutose 15) 0 gm PO ONCE PRN; Protocol PRN Reason: Hypoglycemia Protocol Enoxaparin Sodium (Lovenox) 40 mg SC DAILY KRISTY PRN Reason: Protocol Last Admin: 05/06/17 09:56 Dose: 40 mg Famotidine (Pepcid) 20 mg IVP DAILY [facility] Last Admin: 05/06/17 09:56 Dose: 20 mg Glucagon (Glucagen Diagnostic Kit) 0 mg IM STAT PRN; Protocol PRN Reason: Hypoglycemia Protocol Hydromorphone HCl (Dilaudid) 0.5 mg IVP Q3H PRN PRN Reason: Pain, severe (8-10) Sodium Chloride (Sodium Chloride 0.9%) 1,000 mls @ 100 mls/hr IV .Q10H [facility] Stop: 05/06/17 17:37 Last Admin: 05/06/17 09:57 Dose: 100 mls/hr Insulin Human Regular (Humulin R) 0 units SC ACHS KRISTY PRN Reason: Protocol Last Admin: 05/06/17 13:20 Dose: 2 units Mupirocin (Bactroban Ointment) 1 applic TOP BID [facility] Last Admin: 05/06/17 09:49 Dose: Not Given Ondansetron HCl (Zofran Inj) 4 mg IVP Q4 PRN PRN Reason: Nausea/Vomiting Last Admin: 05/04/17 09:20 Dose: 4 mg Oxycodone/Acetaminophen (Percocet 5/325 Mg Tab) 2 tab PO Q6 PRN PRN Reason: Pain, moderate (4-7) Stop: 05/09/17 12:11 Last Admin: 05/06/17 12:51 Dose: 2 tab Tamsulosin HCl (Flomax) 0.4 mg PO DAILY KRISTY Last Admin: 05/06/17 09:54 Dose: 0.4 mg - Labs Labs: - Additional Findings Additional findings: Constitutional Appears: Non-toxic, No Acute Distress - Head Exam Head Exam: ATRAUMATIC - Eye Exam Eye Exam: EOMI, PERRL - ENT Exam ENT Exam: Normal Oropharynx - Neck Exam Neck exam: Positive for: Full Rom - Respiratory Exam Respiratory Exam: Clear to Auscultation Bilateral, NORMAL BREATHING PATTERN - Cardiovascular Exam Cardiovascular Exam: RRR - GI/Abdominal Exam GI & Abdominal Exam: Soft Additional comments: No distention abdominal surgical site with yury in place No discharge minimal erythema has resolved around yury no tenderness to palpation - Extremities Exam Extremities exam: Positive for: normal inspection - Neurological Exam Neurological exam: Alert, Oriented x 3 Laboratory Results - last 72 hr 05/03/17 05/03/17 05/03/17 21:43 22:10 22:37 WBC 5.4 RBC 4.41 Hgb 13.4 Hct 39.1 MCV 88.8 MCH 30.4 MCHC 34.2 RDW 14.5 Plt Count 155 MPV 9.0 Neut % (Auto) 59.2 Lymph % (Auto) 27.3 [place] % (Auto) 10.0 Eos % (Auto) 2.9 Baso % (Auto) 0.6 Neut # 3.2 Lymph # 1.5 [place] # 0.5 Eos # 0.2 Baso # 0.0 PT INR APTT pO2 24 L VBG pH 7.44 H VBG pCO2 44 VBG HCO3 27.4 VBG Total CO2 31.3 H VBG O2 Sat (Calc) 55.5 VBG Base Excess 5.0 H VBG Potassium 3.8 Sodium 139.0 Chloride 103.0 Glucose 120 H Lactate 1.5 FiO2 21.0 Potassium Carbon Dioxide Anion Gap BUN Creatinine Est GFR ( Amer) Est GFR (Non-Af Amer) POC Glucose (mg/dL) 128 H Random Glucose Hemoglobin A1c Calcium Phosphorus Magnesium Total Bilirubin AST ALT Alkaline Phosphatase Troponin I Total Protein Albumin Globulin Albumin/Globulin Ratio Lipase Procalcitonin TSH 3rd Generation Venous Blood Potassium 3.8 Urine Color Urine Clarity Urine pH Ur Specific [place] Urine Protein Urine Glucose (UA) Urine Ketones Urine Blood Urine Nitrate Urine Bilirubin Urine Urobilinogen Ur Leukocyte Esterase Urine RBC (Auto) Urine Microscopic WBC Ur Squamous Epith Cells Amorphous Sediment Urine Bacteria Blood Type Blood Type Confirm Antibody Screen Crossmatch BBK History Checked 05/03/17 05/03/17 05/04/17 22:37 22:37 04:27 WBC RBC Hgb Hct MCV MCH MCHC RDW Plt Count MPV Neut % (Auto) Lymph % (Auto) [place] % (Auto) Eos % (Auto) Baso % (Auto) Neut # Lymph # [place] # Eos # Baso # PT 11.5 INR 1.1 APTT 33.6 pO2 VBG pH VBG pCO2 VBG HCO3 VBG Total CO2 VBG O2 Sat (Calc) VBG Base Excess VBG Potassium Sodium 140 138 Chloride 103 102 Glucose Lactate FiO2 Potassium 3.9 3.9 Carbon Dioxide 27 25 Anion Gap 14 15 BUN 13 12 Creatinine 0.8 0.7 L Est GFR ( Amer) > 60 > 60 Est GFR (Non-Af Amer) > 60 > 60 POC Glucose (mg/dL) Random Glucose 114 H 174 H Hemoglobin A1c Calcium 10.0 9.1 Phosphorus 3.0 Magnesium 1.9 Total Bilirubin 0.5 AST 30 ALT 41 Alkaline Phosphatase 52 Troponin I < 0.0120 Total Protein 7.2 Albumin 4.5 Globulin 2.8 Albumin/Globulin Ratio 1.6 Lipase 51 Procalcitonin TSH 3rd Generation 4.08 Venous Blood Potassium Urine Color Urine Clarity Urine pH Ur Specific [place] Urine Protein Urine Glucose (UA) Urine Ketones Urine Blood Urine Nitrate Urine Bilirubin Urine Urobilinogen Ur Leukocyte Esterase Urine RBC (Auto) Urine Microscopic WBC Ur Squamous Epith Cells Amorphous Sediment Urine Bacteria Blood Type Blood Type Confirm Antibody Screen Crossmatch BBK History Checked 05/04/17 05/04/17 05/04/17 04:27 04:27 05:43 WBC 7.6 RBC 4.30 L Hgb 13.3 Hct 38.3 MCV 89.2 MCH 31.1 H MCHC 34.8 RDW 14.6 H Plt Count 139 MPV 8.7 Neut % (Auto) 70.0 Lymph % (Auto) 22.3 [place] % (Auto) 6.9 Eos % (Auto) 0.4 Baso % (Auto) 0.4 Neut # 5.3 Lymph # 1.7 [place] # 0.5 Eos # 0.0 Baso # 0.0 PT INR APTT pO2 VBG pH VBG pCO2 VBG HCO3 VBG Total CO2 VBG O2 Sat (Calc) VBG Base Excess VBG Potassium Sodium Chloride Glucose Lactate FiO2 Potassium Carbon Dioxide Anion Gap BUN Creatinine Est GFR ( Amer) Est GFR (Non-Af Amer) POC Glucose (mg/dL) 211 H Random Glucose Hemoglobin A1c 6.7 H Calcium Phosphorus Magnesium Total Bilirubin AST ALT Alkaline Phosphatase Troponin I Total Protein Albumin Globulin Albumin/Globulin Ratio Lipase Procalcitonin TSH 3rd Generation Venous Blood Potassium Urine Color Urine Clarity Urine pH Ur Specific [place] Urine Protein Urine Glucose (UA) Urine Ketones Urine Blood Urine Nitrate Urine Bilirubin Urine Urobilinogen Ur Leukocyte Esterase Urine RBC (Auto) Urine Microscopic WBC Ur Squamous Epith Cells Amorphous Sediment Urine Bacteria Blood Type Blood Type Confirm Antibody Screen Crossmatch BBK History Checked 05/04/17 05/04/17 05/04/17 09:00 09:53 10:14 WBC RBC Hgb Hct MCV MCH MCHC RDW Plt Count MPV Neut % (Auto) Lymph % (Auto) [place] % (Auto) Eos % (Auto) Baso % (Auto) Neut # Lymph # [place] # Eos # Baso # PT INR APTT pO2 VBG pH VBG pCO2 VBG HCO3 VBG Total CO2 VBG O2 Sat (Calc) VBG Base Excess VBG Potassium Sodium Chloride Glucose Lactate FiO2 Potassium Carbon Dioxide Anion Gap BUN Creatinine Est GFR ( Amer) Est GFR (Non-Af Amer) POC Glucose (mg/dL) Random Glucose Hemoglobin A1c Calcium Phosphorus Magnesium Total Bilirubin AST ALT Alkaline Phosphatase Troponin I Total Protein Albumin Globulin Albumin/Globulin Ratio Lipase Procalcitonin < 0.05 L TSH 3rd Generation Venous Blood Potassium Urine Color Urine Clarity Urine pH Ur Specific [place] Urine Protein Urine Glucose (UA) Urine Ketones Urine Blood Urine Nitrate Urine Bilirubin Urine Urobilinogen Ur Leukocyte Esterase Urine RBC (Auto) Urine Microscopic WBC Ur Squamous Epith Cells Amorphous Sediment Urine Bacteria Blood Type O POSITIVE Blood Type Confirm O POSITIVE Antibody Screen Negative Crossmatch See Detail BBK History Checked No verified bt 05/04/17 05/04/17 05/04/17 11:22 14:30 17:01 WBC RBC Hgb Hct MCV MCH MCHC RDW Plt Count MPV Neut % (Auto) Lymph % (Auto) [place] % (Auto) Eos % (Auto) Baso % (Auto) Neut # Lymph # [place] # Eos # Baso # PT INR APTT pO2 VBG pH VBG pCO2 VBG HCO3 VBG Total CO2 VBG O2 Sat (Calc) VBG Base Excess VBG Potassium Sodium Chloride Glucose Lactate FiO2 Potassium Carbon Dioxide Anion Gap BUN Creatinine Est GFR ( Amer) Est GFR (Non-Af Amer) POC Glucose (mg/dL) 164 H 135 H 163 H Random Glucose Hemoglobin A1c Calcium Phosphorus Magnesium Total Bilirubin AST ALT Alkaline Phosphatase Troponin I Total Protein Albumin Globulin Albumin/Globulin Ratio Lipase Procalcitonin TSH 3rd Generation Venous Blood Potassium Urine Color Urine Clarity Urine pH Ur Specific [place] Urine Protein Urine Glucose (UA) Urine Ketones Urine Blood Urine Nitrate Urine Bilirubin Urine Urobilinogen Ur Leukocyte Esterase Urine RBC (Auto) Urine Microscopic WBC Ur Squamous Epith Cells Amorphous Sediment Urine Bacteria Blood Type Blood Type Confirm Antibody Screen Crossmatch BBK History Checked 05/04/17 05/05/17 05/05/17 21:00 05:23 05:30 WBC 10.7 RBC 4.27 L Hgb 12.8 Hct 37.8 MCV 88.6 MCH 30.1 MCHC 33.9 RDW 14.3 Plt Count 153 MPV Neut % (Auto) Lymph % (Auto) [place] % (Auto) Eos % (Auto) Baso % (Auto) Neut # Lymph # [place] # Eos # Baso # PT INR APTT pO2 VBG pH VBG pCO2 VBG HCO3 VBG Total CO2 VBG O2 Sat (Calc) VBG Base Excess VBG Potassium Sodium Chloride Glucose Lactate FiO2 Potassium Carbon Dioxide Anion Gap BUN Creatinine Est GFR ( Amer) Est GFR (Non-Af Amer) POC Glucose (mg/dL) 224 H 221 H Random Glucose Hemoglobin A1c Calcium Phosphorus Magnesium Total Bilirubin AST ALT Alkaline Phosphatase Troponin I Total Protein Albumin Globulin Albumin/Globulin Ratio Lipase Procalcitonin TSH 3rd Generation Venous Blood Potassium Urine Color Urine Clarity Urine pH Ur Specific [place] Urine Protein Urine Glucose (UA) Urine Ketones Urine Blood Urine Nitrate Urine Bilirubin Urine Urobilinogen Ur Leukocyte Esterase Urine RBC (Auto) Urine Microscopic WBC Ur Squamous Epith Cells Amorphous Sediment Urine Bacteria Blood Type Blood Type Confirm Antibody Screen Crossmatch BBK History Checked 05/05/17 05/05/17 05/05/17 05:30 11:34 15:53 WBC RBC Hgb Hct MCV MCH MCHC RDW Plt Count MPV Neut % (Auto) Lymph % (Auto) [place] % (Auto) Eos % (Auto) Baso % (Auto) Neut # Lymph # [place] # Eos # Baso # PT INR APTT pO2 VBG pH VBG pCO2 VBG HCO3 VBG Total CO2 VBG O2 Sat (Calc) VBG Base Excess VBG Potassium Sodium 135 Chloride 100 Glucose Lactate FiO2 Potassium 4.0 Carbon Dioxide 27 Anion Gap 11 BUN 11 Creatinine 0.7 L Est GFR ( Amer) > 60 Est GFR (Non-Af Amer) > 60 POC Glucose (mg/dL) 181 H 145 H Random Glucose 215 H Hemoglobin A1c Calcium 8.9 Phosphorus Magnesium Total Bilirubin AST ALT Alkaline Phosphatase Troponin I Total Protein Albumin Globulin Albumin/Globulin Ratio Lipase Procalcitonin TSH 3rd Generation Venous Blood Potassium Urine Color Urine Clarity Urine pH Ur Specific [place] Urine Protein Urine Glucose (UA) Urine Ketones Urine Blood Urine Nitrate Urine Bilirubin Urine Urobilinogen Ur Leukocyte Esterase Urine RBC (Auto) Urine Microscopic WBC Ur Squamous Epith Cells Amorphous Sediment Urine Bacteria Blood Type Blood Type Confirm Antibody Screen Crossmatch BBK History Checked 05/05/17 05/05/17 05/06/17 20:30 21:36 05:41 WBC RBC Hgb Hct MCV MCH MCHC RDW Plt Count MPV Neut % (Auto) Lymph % (Auto) [place] % (Auto) Eos % (Auto) Baso % (Auto) Neut # Lymph # [place] # Eos # Baso # PT INR APTT pO2 VBG pH VBG pCO2 VBG HCO3 VBG Total CO2 VBG O2 Sat (Calc) VBG Base Excess VBG Potassium Sodium Chloride Glucose Lactate FiO2 Potassium Carbon Dioxide Anion Gap BUN Creatinine Est GFR ( Amer) Est GFR (Non-Af Amer) POC Glucose (mg/dL) 219 H 228 H Random Glucose Hemoglobin A1c Calcium Phosphorus Magnesium Total Bilirubin AST ALT Alkaline Phosphatase Troponin I Total Protein Albumin Globulin Albumin/Globulin Ratio Lipase Procalcitonin TSH 3rd Generation Venous Blood Potassium Urine Color Yellow Urine Clarity Slighty-cloudy Urine pH 7.0 Ur Specific [place] 1.014 Urine Protein Negative Urine Glucose (UA) >=500 Urine Ketones Negative Urine Blood Small Urine Nitrate Negative Urine Bilirubin Negative Urine Urobilinogen 0.2-1.0 Ur Leukocyte Esterase Neg Urine RBC (Auto) 20 H Urine Microscopic WBC 2 Ur Squamous Epith Cells < 1 Amorphous Sediment Few H Urine Bacteria Occ H Blood Type Blood Type Confirm Antibody Screen Crossmatch BBK History Checked 05/06/17 05/06/17 05/06/17 06:55 06:55 11:05 WBC 9.0 RBC 4.42 Hgb 13.5 Hct 38.4 MCV 86.8 MCH 30.5 MCHC 35.2 RDW 14.2 Plt Count 170 MPV Neut % (Auto) Lymph % (Auto) [place] % (Auto) Eos % (Auto) Baso % (Auto) Neut # Lymph # [place] # Eos # Baso # PT INR APTT pO2 VBG pH VBG pCO2 VBG HCO3 VBG Total CO2 VBG O2 Sat (Calc) VBG Base Excess VBG Potassium Sodium 134 Chloride 99 Glucose Lactate FiO2 Potassium 4.0 Carbon Dioxide 27 Anion Gap 13 BUN 15 Creatinine 0.7 L Est GFR ( Amer) > 60 Est GFR (Non-Af Amer) > 60 POC Glucose (mg/dL) 220 H Random Glucose 213 H Hemoglobin A1c Calcium 9.4 Phosphorus Magnesium Total Bilirubin AST ALT Alkaline Phosphatase Troponin I Total Protein Albumin Globulin Albumin/Globulin Ratio Lipase Procalcitonin TSH 3rd Generation Venous Blood Potassium Urine Color Urine Clarity Urine pH Ur Specific [place] Urine Protein Urine Glucose (UA) Urine Ketones Urine Blood Urine Nitrate Urine Bilirubin Urine Urobilinogen Ur Leukocyte Esterase Urine RBC (Auto) Urine Microscopic WBC Ur Squamous Epith Cells Amorphous Sediment Urine Bacteria Blood Type Blood Type Confirm Antibody Screen Crossmatch BBK History Checked Microbiology 05/03/17 22:37 Blood Blood Culture - Preliminary NO GROWTH AFTER 48 HOURS Accession No. : [id number] Patient Name / ID : JUSTIN HARMON / [id number] Exam Date : 05/05/2017 20:06:22 ( Approved ) Study Comment : Sex / Age : M / [id number] Creator : Jose Esteban MD Dictator : Jose Esteban MD Paper Machine Operator : General Handling Supervisor : Jose Esteban MD Approver2 : Report Date : 05/06/2017 11:36:12 My Comment : HISTORY: Small-bowel obstruction. COMPARISON: 05/03/2017. TECHNIQUE: Chest PA and lateral FINDINGS: LUNGS: No active pulmonary disease. PLEURA: No significant pleural effusion identified. No pneumothorax apparent. CARDIOVASCULAR: No radiographic findings to suggest acute or significant cardiovascular disease. OSSEOUS STRUCTURES: No significant abnormalities. VISUALIZED UPPER ABDOMEN: Normal. OTHER FINDINGS: None. IMPRESSION: No active disease. No significant interval change compared to the prior examination(s). Assessment and Plan (1) Small bowel obstruction Status: Acute (2) Diabetes mellitus Status: Acute - Assessment and Plan (Free Text) Assessment: A/p- 81 year old male with DM II, BPH, h/o previous surgeries including cholecystectomy was admitted with abd. pain found to have SBO most likely secondary to adhesion POD #1 for ex lap and adhesiolysis. pt. not septic afebrile normal wbc count repeat cxr 05/05/2017- negative as per radiologist's report. blood cx- negative x 2 UA- negative plan- advise to d/c mupiricn ointment since incision site looks clean/dry/intact and no erythema today. all cultures are negative. No indication for any systemic antibiotics at this time. will sign off the case at this time. Please re-consult as needed.
[2017-05-06] MEDS ORDERED: Lactulose 10 gm/15 ml Syrup PO PRN (16:48)
[2017-05-07 00:21] VITALS: RESP 20; O2SAT 96
[2017-05-07 08:16] VITALS: BP 113/73; PULSE 108; TEMP 99
--- NOTE | 2017-05-07 08:50 | CP.PCM.DIS ---
Provider - Provider Date of Admission: 05/04/17 00:40 Attending physician: Florentin Longo MD Primary care physician: Dr Faustin Consults: Surgery: Dr jurado ID : Dr Billings Cardio: DR Wilkes Time Spent in preparation of Discharge (in minutes): 25 Diagnosis - Discharge Diagnosis (1) Small bowel obstruction Status: Acute (2) Internal hernia Status: Acute (3) Atelectasis Status: Acute (4) DM type 2 (diabetes mellitus, type 2) Status: Chronic (5) BPH (benign prostatic hyperplasia) Status: Chronic (6) DVT prophylaxis Status: Acute (7) Delirium, induced by drug Status: Acute Hospital Course - Lab Results Lab Results: Micro Results 05/05/17 16:10 Blood-Venous Blood Culture - Preliminary NO GROWTH AFTER 24 HOURS Most Recent Lab Values WBC 9.0 K/uL (4.8-10.8) 05/06/17 06:55 RBC 4.42 Mil/uL (4.40-5.90) 05/06/17 06:55 Hgb 13.5 g/dL (12.0-18.0) 05/06/17 06:55 Hct 38.4 % (35.0-51.0) 05/06/17 06:55 MCV 86.8 fl (80.0-94.0) 05/06/17 06:55 MCH 30.5 pg (27.0-31.0) 05/06/17 06:55 MCHC 35.2 g/dL (33.0-37.0) 05/06/17 06:55 RDW 14.2 % (11.5-14.5) 05/06/17 06:55 Plt Count 170 K/uL (130-400) 05/06/17 06:55 MPV 8.7 fl (7.2-11.7) 05/04/17 04:27 Neut % (Auto) 70.0 % (50.0-75.0) 05/04/17 04:27 Lymph % (Auto) 22.3 % (20.0-40.0) 05/04/17 04:27 [place] % (Auto) 6.9 % (0.0-10.0) 05/04/17 04:27 Eos % (Auto) 0.4 % (0.0-4.0) 05/04/17 04:27 Baso % (Auto) 0.4 % (0.0-2.0) 05/04/17 04:27 Neut # 5.3 K/uL (1.8-7.0) 05/04/17 04:27 Lymph # 1.7 K/uL (1.0-4.3) 05/04/17 04:27 [place] # 0.5 K/uL (0.0-0.8) 05/04/17 04: Eos # 0.0 K/uL (0.0-0.7) 05/04/17 04:27 Baso # 0.0 K/uL (0.0-0.2) 05/04/17 04:27 PT 11.5 Seconds (9.8-13.1) 05/03/17 22:37 INR 1.1 (0.9-1.2) 05/03/17 22:37 APTT 33.6 Seconds (25.6-37.1) 05/03/17 22:37 pO2 24 mm/Hg (30-55) L 05/03/17 22:10 VBG pH 7.44 (7.32-7.43) H 05/03/17 22:10 VBG pCO2 44 mmHg (40-60) 05/03/17 22:10 VBG HCO3 27.4 mmol/L 05/03/17 22:10 VBG Total CO2 31.3 mmol/L (22-28) H 05/03/17 22:10 VBG O2 Sat (Calc) 55.5 % (40-65) 05/03/17 22:10 VBG Base Excess 5.0 mmol/L (0.0-2.0) H 05/03/17 22:10 VBG Potassium 3.8 mmol/L (3.6-5.2) 05/03/17 22:10 Sodium 139.0 mmol/L (132-148) 05/03/17 22:10 Chloride 103.0 mmol/L (98-107) 05/03/17 22:10 Glucose 120 mg/dL (75-110) H 05/03/17 22:10 Lactate 1.5 mmol/L (0.7-2.1) 05/03/17 22:10 FiO2 21.0 % 05/03/17 22:10 Sodium 134 mmol/l (132-148) 05/06/17 06:55 Potassium 4.0 MMOL/L (3.6-5.0) 05/06/17 06:55 Chloride 99 mmol/L (98-107) 05/06/17 06:55 Carbon Dioxide 27 mmol/L (22-30) 05/06/17 06:55 Anion Gap 13 (10-20) 05/06/17 06:55 BUN 15 mg/dl (9-20) 05/06/17 06:55 Creatinine 0.7 mg/dL (0.8-1.5) L 05/06/17 06:55 Est GFR ( Amer) > 60 05/06/17 06:55 Est GFR (Non-Af Amer) > 60 05/06/17 06:55 POC Glucose (mg/dL) 118 mg/dL (65-110) H 05/07/17 05:52 Random Glucose 213 mg/dL (75-110) H 05/06/17 06:55 Hemoglobin A1c 6.7 % (4.2-6.5) H 05/04/17 04:27 Calcium 9.4 mg/dL (8.4-10.2) 05/06/17 06:55 Phosphorus 3.0 mg/dl (2.5-4.5) 05/04/17 04:27 Magnesium 1.9 MG/DL (1.6-2.3) 05/04/17 04:27 Total Bilirubin 0.5 mg/dl (0.2-1.3) 05/03/17 22:37 AST 30 U/L (17-59) 05/03/17 22:37 ALT 41 U/L (21-72) 05/03/17 22:37 Alkaline Phosphatase 52 U/L (38-126) 05/03/17 22:37 Troponin I < 0.0120 ng/mL (0.00-0.120) 05/03/17 22:37 Total Protein 7.2 G/DL (6.3-8.2) 05/03/17 22:37 Albumin 4.5 g/dL (3.5-5.0) 05/03/17 22:37 Globulin 2.8 gm/dL (2.2-3.9) 05/03/17 22:37 Albumin/Globulin Ratio 1.6 (1.0-2.1) 05/03/17 22:37 Lipase 51 U/L (23-300) 05/03/17 22:37 Procalcitonin < 0.05 NG/ML (0.19-0.49) L 05/04/17 09:00 TSH 3rd Generation 4.08 mIU/ML (0.46-4.68) 05/04/17 04:27 Venous Blood Potassium 3.8 mmol/L (3.6-5.2) 05/03/17 22:10 Urine Color Yellow (YELLOW) 05/05/17 20:30 Urine Clarity Slighty-cloudy (Clear) 05/05/17 20:30 Urine pH 7.0 (5.0-8.0) 05/05/17 20:30 Ur Specific [place] 1.014 (1.003-1.030) 05/05/17 20:30 Urine Protein Negative mg/dL (NEGATIVE) 05/05/17 20:30 Urine Glucose (UA) >=500 mg/dL (Normal) 05/05/17 20:30 Urine Ketones Negative mg/dL (NEGATIVE) 05/05/17 20:30 Urine Blood Small (NEGATIVE) 05/05/17 20:30 Urine Nitrate Negative (NEGATIVE) 05/05/17 20:30 Urine Bilirubin Negative (NEGATIVE) 05/05/17 20:30 Urine Urobilinogen 0.2-1.0 mg/dL (0.2-1.0) 05/05/17 20:30 Ur Leukocyte Esterase Neg [place]/uL (Negative) 05/05/17 20:30 Urine RBC (Auto) 20 /hpf (0-3) H 05/05/17 20:30 Urine Microscopic WBC 2 /hpf (0-5) 05/05/17 20:30 Ur Squamous Epith Cells < 1 /hpf (0-5) 05/05/17 20:30 Amorphous Sediment Few /ul (<OCC) H 05/05/17 20:30 Urine Bacteria Occ (<OCC) H 05/05/17 20:30 Blood Type O POSITIVE 05/04/17 09:53 Blood Type Confirm O POSITIVE 05/04/17 10:14 Antibody Screen Negative 05/04/17 09:53 Crossmatch See Detail 05/04/17 09:53 BBK History Checked No verified bt 05/04/17 09:53 - Hospital Course Hospital Course: 81 y/o gent with hx of DM, BPH, Gastritis, Diverticulosis , came in because of severe abdominal pain. CT of the Abd: high grade SBO. Pt was admitted, kept NPO, IVF started. Surgery was consulted - underwent Explor Lap , Adhesiolysis and Repair of Internal Hernia on 05/04. Post op pt became confused. Placed on 1:1 monitoring for safety. At present, pt is doing well. + flatus, tolerating Regular diet and is alert, oriented . (1) Small bowel obstruction sec to Adhesions s/p Explor Lap , Adhesiolysis and repair of internal hernia Status: Acute Pt doing well post op, + flatus Tolerating Regular diet Surgery following pt IVF hydration Pain mgt (2) Internal hernia s/p Repair Status: Acute as above (3) Atelectasis vs Infiltrate seen on CXR Status: Acute rpt CXR- negative no fever, no leukocytosis, sl cough, no dyspnea ID consulted for need to start empiric IV antibiotics for the infiltrates and post op for poss abd proph ID rec NO abx (4) DM type 2 (diabetes mellitus, type 2) Status: Chronic accucheck q ACHS will restart oral hypoglycemics hold Metformin as pt received IV contrast - restart in [facility] (5) BPH (benign prostatic hyperplasia) Status: Chronic cont Flomax 6. Delirium post op like due to meds /anesthesia pt was placed on 1:1 for 1 day only now alert, oriented 7. Physical Deconditioning - Physical therapy consulted- rec IVON placement - Pt lives alone , has 2 hours of [employer] daily (8) DVT prophylaxis Lovenox Discharge Exam - Head Exam Head Exam: ATRAUMATIC, NORMAL INSPECTION, NORMOCEPHALIC - Eye Exam Eye Exam: Normal appearance, PERRL Pupil Exam: NORMAL ACCOMODATION - ENT Exam ENT Exam: Mucous Membranes Moist, Normal External Ear Exam - Neck Exam Neck exam: Full Rom - Respiratory Exam Respiratory Exam: NORMAL BREATHING PATTERN. absent: Respiratory Distress - Cardiovascular Exam Cardiovascular Exam: REGULAR RHYTHM, +S1, +S2 - GI/Abdominal Exam GI & Abdominal Exam: Normal Bowel Sounds, Soft. absent: Tenderness Additional comments: yury intact, wound looks clean - Extremities Exam Extremities exam: full ROM, normal capillary refill, pedal pulses present Additional comments: no calf tenderness - Back Exam Back exam: FULL ROM. absent: CVA tenderness (L), CVA tenderness (R) - Neurological Exam Neurological exam: Alert, CN II-XII Intact, Oriented x3, Reflexes Normal - Psychiatric Exam Psychiatric exam: Flat Affect, Normal Mood - Skin Skin Exam: Dry, Normal Color, Warm Discharge Plan - Follow Up Plan Condition: GOOD Disposition: TRANSF TO SNF Instructions: Open Herniorrhaphy (DC), Laparoscopic Herniorrhaphy (DC), Inguinal Hernia (DC) Additional Instructions: ff up with Dr Jurado in 1 wk ff up with Dr Faustin in 1-2 wks
[2017-05-07] MEDS: Enoxaparin 40 mg Syringe SC SCH (09:25)
[2017-05-07] MEDS: Insulin Regular 100 units/ml SC SCH ×2 (09:25→12:46)
== END 2017-05-07 14:28 | DRG 336 ==
LOC: H.ER 21:28 → H.ERHOLD 05-04 00:40 → H.MEDSURG1 05-04 04:33 → H.TEL 05-04 20:11 → H.MEDSURG1 05-05 15:25
PROVIDERS: ADMIT Internal Medicine; ATTEND Internal Medicine
PROC: 0WQF0ZZ Repair Abdominal Wall, Open Approach (ICD-10-PCS; principal; 2017-05-04 14:30)
PROC: 0DNW0ZZ Release Peritoneum, Open Approach (ICD-10-PCS; 2017-05-04 14:30)
DX: K46.0 Unspecified abdominal hernia with obstruction, without gangrene (principal); F05 Delirium due to known physiological condition; E11.9 Type 2 diabetes mellitus without complications; J98.11 Atelectasis; K29.70 Gastritis, unspecified, without bleeding; N40.0 Benign prostatic hyperplasia without lower urinary tract symptoms; M19.90 Unspecified osteoarthritis, unspecified site; Z79.84 Long term (current) use of oral hypoglycemic drugs; Z78.1 Physical restraint status